=== PATIENT | male | born 1940 | race Caucasian/White ===

== ENCOUNTER 2019-02-25 10:15 | Inpatient (IN) | payer OTHER, SELFPAY ==
[2019-02-25] VITALS (14 sets, daily range): BP systolic 162–196; BP diastolic 83–98; PULSE 42–88; RESP 12–18; TEMP 36.2–37.2; O2SAT 92–100; BMI 33.0
--- NOTE | ~2019-02-25 | XR_ITS ---
EXAMINATION: XR retrograde pyelo w/stent RT DATE: 02/25/2019 15:41 INDICATION: Right-sided stone. TECHNIQUE: Fluoroscopic images from a right internal ureteral stent stent placement are submitted for review. 36 seconds of fluoroscopy time. 4 fluoroscopic images. FINDINGS: There is a right double-J internal ureteral stent projecting in expected position, with proximal [place] loop at the level of the renal pelvis and distal loop in the pelvis within the bladder lumen. There are radiation therapy implant seeds in the prostate bed. IMPRESSION: 1. Right internal ureteral stent placement. Please refer to real-time procedural findings for detai ls. Reviewed, dictated and finalized at location B. POLISHER HAND IMPRESSION: 1. Right internal ureteral stent placement. Please refer to real-time procedu ral findings for details.
--- NOTE | ~2019-02-25 | CT_ITS ---
EXAMINATION: CT abdomen pelvis wo con DATE: 02/25/2019 10:48 INDICATION: Right flank pain. Hematuria. TECHNIQUE: Computed tomography (CT) of the abdomen and pelvis was performed without intravenous contr ast. Automated exposure control and iterative reconstruction technique were employed. The dose-length product was 531.81 mGy-cm. COMPARISON: 12/31/2008 FINDINGS: Mild bibasilar dependent atelectasis. Calcified nodules in the right middle lobe along with calcified right hilar lymph nodes and a few scattered splenic and hepatic calcifications, all consistent with old granulomatous disease. Heart size is normal. No pericardial or pleural effusion. Liver and spleen are otherwise unremarkable. Gallbladder, pancreas and bilateral adrenal glands are normal. 1.[address] at the upper pole of the left kidney. No urolithiasis evident at the left or right kidneys or uret ers. There is mild right hydronephrosis with material of slightly higher than typical soft tissue den sity material peripherally within the right renal pelvis and proximal most right ureter with differen tial including hemorrhage/clot and/or potentially urothelial carcinoma. The partially decompressed bl adder is unremarkable. Multiple brachytherapy seeds at the prostate. The bowels including the appendi x are normal. No free intraperitoneal gas or fluid. No pathologically enlarged abdominal or pelvic ly mphadenopathy. Severe spondylosis at the lumbosacral junction. Mild to moderate spondylosis in the mo re cephalad thoracolumbar spine. There are bridging osteophytes at multiple levels in the spine, cons istent with diffuse idiopathic skeletal hyperostosis (DISH). IMPRESSION: 1. Mild right hydronephrosis with no urolithiasis. Eccentric filling defects at the right renal pelvi s and proximal right ureter with slightly higher than typical soft tissue density with differential i ncluding hemorrhage/clot and/or potentially urothelial carcinoma. Recommend urologic consultation con sideration of ureteroscopy. Reviewed, dictated and finalized at location A. MAKER APPRENTICE IMPRESSION: 1. Mild right hydronephrosis with no urolithiasis. Eccentric filling defects at the right renal pelvis and proximal right ureter with slightly higher than typ ical soft tissue density with differential including hemorrhage/clot and/or pot entially urothelial carcinoma. Recommend urologic consultation consideration of ureteroscopy.
--- NOTE | ~2019-02-25 | XR_ITS ---
XR abdomen/kub 1V 02/27/2019 11:36 Indication: Gross hematuria Procedure: KUB Comparison: CT dated 02/27/2019 Findings: There is residual contrast in the right kidney and renal collecting system, likely from pre vious retrograde pyelogram performed 02/25/2019. There is a right internal ureteral stent in expected position. There are radiation therapy implant seeds in the prostate bed. Bowel gas pattern is nonobs tructive. Impression: 1: Residual contrast in the right kidney and renal collecting system, consistent with obstruction. Ri ght internal ureteral stent in expected position. Reviewed, dictated and finalized at location B. ETICS DEMONSTRATOR Impression: 1: Residual contrast in the right kidney and renal collecting system, consisten t with obstruction. Right internal ureteral stent in expected position.
--- NOTE | ~2019-02-25 | CT_ITS ---
EXAMINATION: CT abdomen pelvis wo/w con DATE: 02/27/2019 10:00 INDICATION: Gross hematuria TECHNIQUE: Computed tomography (CT) of the abdomen and pelvis was performed without intravenous contr ast. The dose-length product was 2573.73 mGy-cm. Automated exposure control and iterative reconstruct ion technique were employed. COMPARISON: CT dated 02/25/2019 FINDINGS: Stable 6 millimeter right middle lobe nodule, pleural-based. Dependent bibasilar atelectasi s. Heart size is normal. Mild pleural thickening bilaterally. Calcified granulomas in the spleen and liver. Gallbladder contains stones. There is a right internal ureteral stent in expected position. Mild distal right periureteral edema. There is high density mate rial in the right renal pelvis and proximal ureter, likely hemorrhage or less likely residual contras t. There is a Spivey catheter in the bladder which is thickened. There are prostate radiation therapy implants. No lymphadenopathy. Moderate lower thoracic and lumbar spondylosis. The pancreas and adrenal glands are unremarkable. There is a left renal cyst. Bowel pattern is nonobs tructive. No acute osseous abnormality. IMPRESSION: 1. High density material in the right renal pelvis and proximal ureter, likely hemorrhage or less lik jovana residual contrast. Right internal ureteral stent in expected position. 2: Bladder wall thickening, possibly due to bladder outlet obstruction and/or cystitis. 3: 6 mm right middle lobe nodule stable. Follow-up low dose CT chest in 6 months recommended. Reviewed, dictated and finalized at location B. ING MACHINE OPERATOR IMPRESSION: 1. High density material in the right renal pelvis and proximal ureter, likely hemorrhage or less likely residual contrast. Right internal ureteral stent in e xpected position. 2: Bladder wall thickening, possibly due to bladder outlet obstruction and/or c ystitis. 3: 6 mm right middle lobe nodule stable. Follow-up low dose CT chest in 6 month s recommended.
--- NOTE | 2019-02-25 10:41 | PC.NURSE ---
Unable to get blood from pt due to Xray taking him at this time.
--- NOTE | 2019-02-25 10:57 | PC.NURSE ---
Pt attempting urination at this time.
--- NOTE | 2019-02-25 11:06 | PC.NURSE ---
Pt unable to produce specimen, refusing cath.
[2019-02-25 11:09] LABS: Basophils Percent Auto 0.3 % (0.2-1.2); Eosinophils Absolute Auto 0.1 K/mm3 (0-0.3); Eosinophils Percent Auto 1.9 % (0-4.4); Hematocrit 45.6 % (42.0-52.0); Hemoglobin 15.3 g/dL (14.0-18.0); Immature Granulocyte Absolute 0.03 K/mm3 (0.00-0.031); Immature Granulocyte Percent A 0.5 % (0-0.5); Lymphocytes Absolute Auto 1.27 K/mm3 (0.9-3.2); Mean Corpuscular HGB Conc 33.6 g/dl (32-36); Mean Corpuscular Volume 92.3 fl (80-100); Mean Platelet Volume 8.9 fl (7.4-10.4); Monocytes Absolute Auto 0.6 K/mm3 (0.1-0.6); Monocytes Percent Auto 10.1 % (2.6-8.5); Neutrophils Absolute Auto 4.3 K/mm3 (1.3-6.7); Neutrophils Percent Auto 67.2 % (45.5-73.1); Platelet Count Result 214 k/mm3 (150-375); Red Blood Count 4.94 M/mm3 (4.6-6.20); Red Cell Distribution Width 12.5 % (11.5-14.5); White Blood Count 6.4 K/mm3 (4.5-10.0)
[2019-02-25 11:21] LABS: Alanine Aminotransferase 35 U/L (4-50); Albumin Level 4.6 g/dL (3.5-5.1); Alkaline Phosphatase 86 U/L (38-126); Aspartate Amino Transferase 32 U/L (17-59); Bilirubin,Total 0.7 mg/dL (0.2-1.3); Blood Urea Nitrogen 17 mg/dL (9-20); Calcium 9.6 mg/dL (8.4-10.2); Carbon Dioxide 23 mmol/L (22-30); Chloride 104 mmol/L (98-107); Estimated CRCL calculation 74 ml/min; Estimated Glomerular Filt Rate > 60; Glucose 141 mg/dL (75-110); Potassium 3.8 mmol/L (3.4-5.0); Prothrombin Time 12.5 Seconds (11.1-14.7); Sodium 141 mmol/L (137-145)
[2019-02-25 11:22] LABS: Partial Thromboplastin Time 28.1 SECONDS (22.3-36.8)
[2019-02-25 12:30] LABS: Add Urine Microscopic? YES; Appearance Urine Clear (Clear); Bacteria Urine Trace /hpf; Bilirubin Urine Negative (Negative); Blood Urine 2+ (Negative); Color Urine Yellow (Yellow); Glucose Urine UA Negative (Negative); Ketones Urine Negative (Negative); Leukocyte Esterase Ur Trace LEU/UL (Negative); Mucus Urine Rare /lpf; Nitrate Urine Negative (Negative); Protein Urine Negative (Negative); RBC Urine >75 /hpf (0-2); Urobilinogen Urine Negative mg/dL (<2.0)
--- NOTE | 2019-02-25 12:35 | PC.NURSE ---
PT FOUND VOMMITTING IN BED, PT REPORTS NAUSEA CAME ON SUDDENLY, MADONNA VANEGAS INFORMED, VERBAL ORDER FOR STAT DOSE OF IVP ZOFRAN 4MG.
[2019-02-25] MEDS: MORPHINE SULFATE 2 MG/ML INJ IV PUSH (12:42)
[2019-02-25] MEDS: ONDANSETRON INJ 4 MG/2 ML VIAL (13:08)
--- NOTE | 2019-02-25 13:16 | ED.GENADULT ---
HPI - General Adult General Chief complaint: Back Pain/Injury Stated complaint: hematuria, flank pain Time Seen by Provider: 02/25/19 10:21 Source: patient Mode of arrival: ambulatory Limitations: no limitations History of Present Illness HPI narrative: Patient presents with CC of right flank pain that radiates into his right groin that has been progressively worsening since this morning. He states he has noticed red urine since Sunday but thought it was due to red dye in vitalife supplement he started for his joint pains/arthritis. He denies fever, N/V/D. He denies history of kidney stones. He denies seeing clots in his urine and denies pain with urination or inability to urinate. Patient PMH of hypercholesterolemia, hypertension, and arthritis. He reports he takes 81 mg aspirin but denies other blood thinner usage. Related Data Home Medications Medication Instructions Recorded Confirmed amlodipine 5 mg PO DAILY 02/25/19 aspirin 81 mg PO DAILY 02/25/19 atorvastatin 10 mg PO DAILY 02/25/19 irbesartan-hydrochlorothiazide 1 tablet PO DAILY 02/25/19 metoprolol succinate 200 mg PO BID 02/25/19 sgdnrxnt-cah-QQ-lycopen-lutein tablet 02/25/19 [Vitacel (with Lutein)] omega 1-rwt-qjg-fish oil [Fish Oil] cap PO 02/25/19 Allergies Allergy/AdvReac Type Severity Reaction Status Date / Time No Known Allergies Allergy Unverified 10/16/16 07:49 Review of Systems Review of Systems: Narrative: CONSTITUTIONAL: Denies fever, chills, or sweats. EYES: Denies visual changes, redness, or discharge. ENT: Denies rhinorrhea, congestion, sore throat, or otalgia. CARDIOVASCULAR: Denies chest pain, palpitations, or edema. RESPIRATORY: Denies cough or dyspnea. GASTROINTESTINAL: Denies abdominal pain, nausea, vomiting, or diarrhea. GENITOURINARY: Reports right flank pain and hematuria. Denies dysuria SKIN: Denies rash or itching. MUSCULOSKELETAL: Denies back pain, joint pain, or myalgia. NEUROLOGIC: Denies headache, numbness, dizziness, or weakness. PSYCHIATRIC: Denies anxiety or depression. [facility] Past Medical History Medical History (Updated 02/25/19 @ 14:51 by Artur Alexander PA-C) HTN (hypertension) (Acute) Hypercholesterolemia (Acute) Prostate cancer (Acute) Social History Social History Gender identity (if verbalized by the patient): Male Exam Narrative: Exam Narrative: GENERAL: Well-appearing, well-nourished, and in no acute distress. HEAD: Normocephalic, atraumatic. EYES: PERRLA and EOMI. ENT: Nares clear, no rhinorrhea or epistaxis. Mucous membranes moist. Oropharynx without tonsillar hypertrophy exudate or other lesions. Bilateral TMs pearly camacho nonbulging CHEST: Clear to auscultation. No respiratory distress. No wheezes rales or rhonchi HEART: Regular rate and rhythm. No murmur heard. ABDOMEN: Soft, Mildly tender with deep palpation right groin. normal active bowel sounds. EXTREMITIES: Normal range of motion. No edema. SKIN: Warm, dry, no rash. NEURO: No focal deficits. Alert and oriented x3. PSYCH: Normal mood and affect. Course Course Emergency Course: 1307: Consult with Dr. Geiger urology pertaining to patient's presentation, history, work-up. He states that he will typically discharge patient to home with outpatient follow-up but due to his pain level he will have the nurse practitioner come to the emergency department to further evaluate patient and make recommendations towards his treatment plan. Dr. Geiger in ER to evaluate patient. He reports due to patient's pain status he will be taken him to the ER immediately for stent placement. Discussed with him the patient did not take his blood pressure medications at home today and the intention to give patient hydralazine prior to him being taken to the OR. Informed him that patient has been taken to the OR prior to being given the hydralazine. He verbalized understanding. Vital Signs Vital signs
[2019-02-25] MEDS: LACTATED RINGERS 1,000 ML 30 ML IV CONT (14:30)
--- NOTE | 2019-02-25 14:32 | PM.IMHP ---
H&P: HPI History of Present Illness Chief complaint: hematuria, flank pain Narrative: Robbin Mahmood is a 78 year old male with a known history of prostate cancer treated with brachytherapy. I had seen Robbin approximately a year ago regarding that issue. He now presents to the emergency room with complaints of gross hematuria and right flank pain. This started over the past few days progressed to the point where he cannot tolerate the discomfort. CT scan in the emergency room revealed no evidence of stones. He did have some mild right hydro with irregularity of the renal pelvis ureter. It was unclear whether this was clot versus underlying malignancy. He has required quite a bit of narcotics in the emergency room and this will need to be admitted for pain control and further management. Given his pain we decided to proceed with the stent placement at the minimum possibly ureteroscopy. He is aware that if there is clot there we may not be able to adequately evaluate him. Where least trying to decompress his kidney control his pain. He may require further management once his pain issue resolved Review of Systems Review of Systems: All systems reviewed & are unremarkable except as noted in HPI and below PMFSH Social History Social History Gender identity (if verbalized by the patient): Male Meds Home Medications and Allergies Home Medications Medication Instructions Recorded Confirmed Type amlodipine 5 mg PO DAILY 02/25/19 History aspirin 81 mg PO DAILY 02/25/19 History atorvastatin 10 mg PO DAILY 02/25/19 History irbesartan-hydrochlorothiazide 1 tablet PO DAILY 02/25/19 History metoprolol succinate 200 mg PO BID 02/25/19 History baqgvxxm-mxu-ZZ-lycopen-lutein tablet 02/25/19 History [Vitacel (with Lutein)] omega 3-gsh-lfi-fish oil [Fish Oil] cap PO 02/25/19 History Allergies Allergy/AdvReac Type Severity Reaction Status Date / Time No Known Allergies Allergy Unverified 10/16/16 07:49 Vital Signs Vital Signs - 24 hr 02/25/19 10:32 02/25/19 12:34 02/25/19 13:40 Temperature 36.6 C 36.5 C Pulse Rate 42 L 56 L 78 Respiratory Rate 18 18 18 Blood Pressure 196/91 H 185/87 H 189/89 H Pulse Oximetry 99 100 100 02/25/19 14:16 Temperature Pulse Rate 88 Respiratory Rate 18 Blood Pressure 188/97 H Pulse Oximetry 99 Exam Narrative: Exam Narrative: Patient is obviously in discomfort from his right flank pain. His vital signs are stable although his blood pressure is slightly elevated most likely from his pain. HENMT: General nose exam: nares normal Eyes: General: appearance normal, both eyes and all related structures EOM: EOM intact bilaterally Resp: Auscultation: clear to auscultation bilaterally (For ER) Cardio: Rate: regular rate Rhythm: regular rhythm (For ER) GI: Inspection: non-distended Palpation (GI): Yes soft and No tender Skin: General skin exam: normal color Neuro: Speech: normal speech Extrem: General: normal to inspection Psych: Affect: normal affect H&P: Results Labs Labs: Short CBC 02/25/19 Range/Units 11:05 WBC 6.4 (4.5-10.0) K/mm3 Hgb 15.3 (14.0-18.0) g/dL Hct 45.6 (42.0-52.0) % Plt Count 214 (150-375) k/mm3 BMP 02/25/19 11:04 Sodium 141 Potassium 3.8 Chloride 104 Carbon Dioxide 23 BUN 17 Creatinine 0.90 Glucose 141 H Calcium 9.6 Liver Function 02/25/19 Range/Units 11:04 Total Bilirubin 0.7 (0.2-1.3) mg/dL AST 32 (17-59) U/L ALT 35 (4-50) U/L Alkaline Phosphatase 86 (38-126) U/L Albumin 4.6 (3.5-5.1) g/dL Urine 02/25/19 Range/Units 11:43 Urine Color Yellow (Yellow) Urine Appearance Clear (Clear) Urine pH 9.0 (5.0-9.0) Ur Specific [place] 1.010 (1.001-1.035) Urine Protein Negative (Negative) mg/dL Urine Glucose (UA) Negative (Negative) mg/dL Assessment and Plan Assessment and plan
--- NOTE | 2019-02-25 14:37 | WPDANESEPPF ---
Anes - Initial Pre Proc Eval Procedure: Operation Date: 02/25/19 16:30 Proposed Procedures p CYSTOSCOPY,RIGHT RETROGRADE PYELOGRAM,STENT PLACEMENT,POSSIBLE URETEROSCOPY - Shaggy Geiger MD Date/Time: 02/25/19 14:37 Surgeon: Shaggy Geiger MD Pre Op Diagnosis: hematuria, flank pain Patient Data Age: 78 Gender: M Height: 1.83 m Weight: 104.3 kg Last Vital Signs Temp 36.5 C 02/25/19 13:40 Pulse 88 02/25/19 14:16 Resp 18 02/25/19 14:16 BP 188/97 H 02/25/19 14:16 Pulse Ox 99 02/25/19 14:16 Allergies Allergy/AdvReac Type Severity Reaction Status Date / Time No Known Allergies Allergy Unverified 10/16/16 07:49 Home Medications Medication Instructions Recorded Confirmed Type amlodipine 5 mg PO DAILY 02/25/19 History aspirin 81 mg PO DAILY 02/25/19 History atorvastatin 10 mg PO DAILY 02/25/19 History irbesartan-hydrochlorothiazide 1 tablet PO DAILY 02/25/19 History metoprolol succinate 200 mg PO BID 02/25/19 History ndzuipbp-wna-GO-lycopen-lutein tablet 02/25/19 History [Vitacel (with Lutein)] omega 9-icm-bid-fish oil [Fish Oil] cap PO 02/25/19 History Laboratory Tests 02/25/19 02/25/19 02/25/19 11:04 11:04 11:05 WBC 6.4 K/mm3 K/mm3 (4.5-10.0) RBC 4.94 M/mm3 M/mm3 (4.6-6.20) Hgb 15.3 g/dL g/dL (14.0-18.0) Hct 45.6 % % (42.0-52.0) MCV 92.3 fl fl (80-100) MCH 31.0 pg pg (26-34) MCHC 33.6 g/dl g/dl (32-36) RDW 12.5 % % (11.5-14.5) Plt Count 214 k/mm3 k/mm3 (150-375) MPV 8.9 fl fl (7.4-10.4) Immature Gran % (Auto) 0.5 % % (0-0.5) Neut % (Auto) 67.2 % % (45.5-73.1) Lymph % (Auto) 20.0 % % (18.3-44.2) [place]isher % (Auto) 10.1 % H % (2.6-8.5) Eos % (Auto) 1.9 % % (0-4.4) Baso % (Auto) 0.3 % % (0.2-1.2) Lymph # (Auto) 1.27 K/mm3 K/mm3 (0.9-3.2) Swisher # (Auto) 0.6 K/mm3 K/mm3 (0.1-0.6) Eos # (Auto) 0.1 K/mm3 K/mm3 (0-0.3) Baso # (Auto) 0.0 K/mm3 K/mm3 (0.0-0.1) Abs Immat Gran (auto) 0.03 K/mm3 K/mm3 (0.00-0.031) Absolute Neuts (auto) 4.3 K/mm3 K/mm3 (1.3-6.7) Absolute Nucleated RBC 0.0 K/mm3 K/mm3 (0.0-0.012) Nucleated RBC % 0.0 % % (0.0-0.2) PT 12.5 Seconds Seconds (11.1-14.7) INR 1.0 APTT 28.1 SECONDS SECONDS (22.3-36.8) Sodium 141 mmol/L mmol/L (137-145) Potassium 3.8 mmol/L mmol/L (3.4-5.0) Chloride 104 mmol/L mmol/L (98-107) Carbon Dioxide 23 mmol/L mmol/L (22-30) BUN 17 mg/dL mg/dL (9-20) Creatinine 0.90 mg/dL mg/dL (0.7-1.3) Estim Creat Clear Calc 74 ml/min ml/min Estimated GFR > 60 (59 - ) Glucose 141 mg/dL H mg/dL (75-110) Calcium 9.6 mg/dL mg/dL (8.4-10.2) Total Bilirubin 0.7 mg/dL mg/dL (0.2-1.3) AST 32 U/L U/L (17-59) ALT 35 U/L U/L (4-50) Alkaline Phosphatase 86 U/L U/L (38-126) Total Protein 8.0 g/dL g/dL (6.3-8.2) Albumin 4.6 g/dL g/dL (3.5-5.1) Urine Color Urine Appearance Urine pH Ur Specific [place] Urine Protein Urine Glucose (UA) Urine Ketones Ur Blood (Man) Urine Nitrate Urine Bilirubin Urine Urobilinogen Leukocyte Esterase Rfl Urine RBC Urine Bacteria Urine Mucus 02/25/19 11:43 WBC RBC Hgb Hct MCV MCH MCHC RDW Plt Count MPV Immature Gran % (Auto) Neut % (Auto) Lymph % (Auto) Swisher % (Auto) Eos % (Auto) Baso % (Auto) Lymph # (Auto) Swisher # (Auto)
--- NOTE | 2019-02-25 14:42 | ECG_ITS ---
Measurements Intervals [place] Rate: 70 P: 74 MD: 258 QRS: -21 QRSD: 115 T: -18 QT: 404 QTc: 436 Interpretive Statements SINUS RHYTHM WITH FIRST DEGREE AV BLOCK INTRAVENTRICULAR CONDUCTION DELAY VOLTAGE CRITERIA FOR LVH BORDERLINE T WAVE ABNORMALITY- INFERIOR LEADS ABNORMAL ECG Electronically Signed On 02-25-2019 16:37:39 SIZE STAMPER by Jaspal Gustafson D.O.
[2019-02-25] MEDS: LIDOCAINE HCL 2% GEL UROJET 10 ML PKG MUCOUS MEM (15:15)
--- NOTE | 2019-02-25 15:38 | PM.PROC ---
Procedure Note - Detailed Date of procedure: 02/25/19 Pre-op diagnosis: hematuria, flank pain Gross hematuria with right renal colic and hydronephrosis Post-op diagnosis: same Procedure performed: Cystoscopy, right retrograde pyelogram, attempted right ureteroscopy, right ureteral stent placement 6 Austrian contour Description of procedure: The patient was taken the operative suite and correctly identified. Once general anesthesia was obtained he was placed in a dorsal lithotomy position prepped and draped in the usual sterile fashion. Twenty-two Austrian scope was inserted into the bladder. There were no urethral strictures prostate was slightly enlarged. Upon entering the bladder there was no bladder tumors. He did however have a large clot extruding from the right ureteral orifice which appeared prominent. We grasped the fragment of this. We then placed a voxappson wire alongside the clot up in the renal pelvis. We placed a rigid ureteroscope into the orifice after dilating with an 8/10 dilator. We were unable to adequately visualize anything due to the clot. The clot was extending all the way up the ureter. At this point time I simply placed a [place] over the guidewire and shot a retrograde to confirm placement of the stent. There was no apparent large filling defects at this time in the renal pelvis. We did go ahead obtain some some urine from the right renal pelvis and sent for cytology. This point time is 6 Austrian contour stent was placed with the proximal end coiled in the renal pelvis and the distal in the bladder. 2% viscous lidocaine was inserted into the urethra. Due to the hematuria we did place a [address] and connected it to CBI. 15 cc were placed the Spivey balloon. Patient was taken recovery stable condition will be admitted for CBI as well as pain control. Once he stabilizes he will require a contrast study. Will needed give adequate time for the clots to resolve and most likely will need a repeat ureteroscopy. Anesthesia: GLMA Surgeon: Shaggy Geiger MD Drains: Yes Packing: No Pathology: other (right renal pelvic urine for cytology) Complications: No immediate complications Condition: stable Disposition: PACU Findings: clot extending into proximal ureter. Unable to visualize adequately
--- NOTE | 2019-02-25 16:00 | SUR.PHASEII ---
1550 PATIENT WAKING UP; ORAL AIRWAY REMOVED. PT SPEAKING COHERENTLY. DENIES PAIN. ONLY REPORTS PRESSURE TO RIGHT LOWER ABDOMINAL. SBI IN PROGRESS. DRAINING RED URINE TO PINA BAG.
--- NOTE | 2019-02-25 17:57 | ADMGEN ---
This patient, Robbin Mahmood, was admitted to 3 Medical Room 349-01. Patient/family oriented to hospital policies and general routines including ID bracelet, bed and alarms, visiting hours, pain management, procedures, bathroom and other care routines, personal items, smoking policy, room service/diet, and visiting hours. Valuables list has been completed. Information on how to activate the Rapid Response Team has been discussed. Patient/Family are encouraged to report perceived risks to care and to ask questions if they do not understand what they are told or what they should do. 1740 Received from OR via stretcher. Family at bedside.
[2019-02-25] MEDS: DOCUSATE SODIUM 100 MG CAPSULE PO (18:59)
[2019-02-25] MEDS: DEXTROSE 5%/LACTATED RINGERS 1,000 ML 125 ML IV CONT (19:51)
[2019-02-26 00:05] VITALS: BP 149/82; PULSE 75; RESP 14; TEMP 36.4; O2SAT 98
[2019-02-26 04:21] VITALS: BP 151/71; PULSE 68; RESP 14; TEMP 36.4; O2SAT 94
[2019-02-26 06:03] LABS: Hemoglobin 14.2 g/dL (14.0-18.0)
[2019-02-26 06:26] LABS: Blood Urea Nitrogen 12 mg/dL (9-20); Carbon Dioxide 26 mmol/L (22-30); Chloride 105 mmol/L (98-107); Estimated CRCL calculation 85 ml/min; Estimated Glomerular Filt Rate > 60; Glucose 143 mg/dL (75-110); Potassium 4.3 mmol/L (3.4-5.0); Sodium 140 mmol/L (137-145)
[2019-02-26 08:40] VITALS: PULSE 68
[2019-02-26] MEDS: METOPROLOL SUCCINATE EXT REL 100 MG TABCR 200 MG PO (08:40)
[2019-02-26] MEDS: ATORVASTATIN 10 MG TABLET PO (08:41)
[2019-02-26] MEDS: IRBESARTAN 150 MG TABLET PO (08:41)
[2019-02-26] MEDS: AMLODIPINE BESYLATE 5 MG TABLET PO (08:41)
[2019-02-26] MEDS: DOCUSATE SODIUM 100 MG CAPSULE PO ×2 (08:41→16:58)
[2019-02-26] MEDS: hydroCHLOROthiazide 12.5 MG CAPSULE PO (08:41)
--- NOTE | 2019-02-26 10:50 | WPDUROPN2 ---
Progress Note: A&P Assessment and Plan (1) Hematuria: Qualifiers: Hematuria type: unspecified type Qualified Code(s): R31.9 - Hematuria, unspecified Code(s): R31.9 - Hematuria, unspecified Status: Acute Assessment and Plan: Will order BMP and H&H and Dr. Geiger to review labs and repeat CT scan to plan for further treatment. (2) Renal colic on right side: Code(s): N23 - Unspecified renal colic Status: Acute Assessment and Plan: creatinine is stable, stent in place (3) Ureter obstruction: Qualifiers: Laterality: right Qualified Code(s): N13.5 - Crossing vessel and stricture of ureter without hydronephrosis Code(s): N13.5 - Crossing vessel and stricture of ureter without hydronephrosis Status: Acute Subjective Subjective Date/Time Seen: 02/26/19 10:50 POD #2 Cystoscopy, right retrograde pyelogram, attempted right ureteroscopy, right ureteral stent placement Continued gross hematuria despite ongoing CBI Review of Systems Cardiovascular: Cardiovascular: Denies chest pain Respiratory: Respiratory: Reports no additional respiratory complaints Gastrointestinal: Gastrointestinal: Reports abdominal pain (right flank) Genitourinary: Genitourinary: Reports hematuria (neves in place) Exam Resp: Effort & Inspection: normal respiratory effort Cardio: Rate: regular rate GI: Palpation (GI): Yes tender in the RUQ : General: Yes CVA tenderness on the right Urinary Catheter: Urinary Catheter: patent and draining and urine red Objective Data Vital Signs Vital Signs: Vital Signs - 24 hr 02/25/19 12:34 02/25/19 13:40 02/25/19 14:16 Temperature 97.7 F Pulse Rate 56 L 78 88 Respiratory Rate 18 18 18 Blood Pressure 185/87 H 189/89 H 188/97 H Pulse Oximetry 100 100 99 02/25/19 15:42 02/25/19 16:00 02/25/19 16:15 Temperature 98.3 F Pulse Rate 75 70 66 Respiratory Rate 15 16 16 Blood Pressure 179/91 H 192/98 H 196/90 H Pulse Oximetry 99 92 L 93 L 02/25/19 16:30 02/25/19 17:00 02/25/19 17:15 Temperature 98 F Pulse Rate 71 71 72 Respiratory Rate 12 16 16 Blood Pressure 189/96 H 183/91 H 177/96 H Pulse Oximetry 96 94 L 95 02/25/19 17:40 02/25/19 17:55 02/25/19 18:25 Temperature 98.9 F 98.9 F 97.1 F L Pulse Rate 76 73 78 Respiratory Rate 18 18 16 Blood Pressure 184/87 H 162/85 H 178/88 H Pulse Oximetry 97 96 99 02/25/19 19:47 02/26/19 00:05 02/26/19 04:21 Temperature 97.7 F 97.6 F 97.6 F Pulse Rate 81 75 68 Respiratory Rate 16 14 14 Blood Pressure 165/83 H 149/82 H 151/71 H Pulse Oximetry 95 98 94 L 02/26/19 08:40 Temperature Pulse Rate 68 Respiratory Rate Blood Pressure Pulse Oximetry Intake/Output Intake/Output: Intake & Output 02/23/19 02/24/19 02/25/19 02/26/19 23:59 23:59 23:59 23:59 Intake Total 9895 1200 Output Total 3708 0985 Balance 6143 -2335 Meds/Results Medications: Active Medications Generic Name Dose Route Start Last Admin Trade Name Freq PRN Reason Stop Dose Admin Hydrocodone Bitart/Acetaminophen 1 tab 02/25/19 16:23 Kemp 5-325 Mg PO Q4H PRN Pain Rated 1-6 Amlodipine Besylate 5 mg 02/26/19 09:00 02/26/19 08:41 Norvasc PO 5 mg DAILY NATALYA Administration Atorvastatin Calcium 10 mg 02/26/19 09:00 02/26/19 08:41 Lipitor PO 10 mg DAILY NATALYA Administration Cephalexin HCl 500 mg 02/26/19 13:00 Keflex Capsule PO QID NATALYA Docusate Sodium 100 mg 02/25/19 17:00 02/26/19 08:41 Colace Cap PO 100 mg BID NATALYA Administration Hydrochlorothiazide 12.5 mg 02/26/19 09:00 02/26/19 08:41 Hydrochlorothiazide PO 12.5 mg QAM NATALYA Administration Hyoscyamine 0.125 mg 02/25/19 16:23 Levsin Tablet SUBLINGUAL Q6H PRN Bladder Spasm Irbesartan 150 mg 02/26/19 09:00 02/26/19 08:41 Avapro PO 03/28/19 09:01 150 mg DAILY NATALYA Administration Metoprolol Succinate 200 mg 02/26/19 09:00 1
--- NOTE | 2019-02-26 13:57 | WPDUROPN2 ---
Progress Note: A&P Assessment and Plan (1) Ureter obstruction: Qualifiers: Laterality: right Qualified Code(s): N13.5 - Crossing vessel and stricture of ureter without hydronephrosis Code(s): N13.5 - Crossing vessel and stricture of ureter without hydronephrosis Status: Acute Assessment and Plan: Stent in place, will remove as an outpatient. No further intervention at this time. (2) Hematuria: Qualifiers: Hematuria type: unspecified type Qualified Code(s): R31.9 - Hematuria, unspecified Code(s): R31.9 - Hematuria, unspecified Status: Acute Assessment and Plan: CBI was turned back on d/t bloody urine. Will probably not totally clear d/t ureteral clot present, but pink urine would be ideal. Wean CBI to off when urine is pink, will keep overnight and re-assess tomorrow. Subjective Subjective Date/Time Seen: 02/26/19 13:57 POD #1 Cystoscopy, right retrograde pyelogram, attempted right ureteroscopy, right ureteral stent placement Review of Systems Cardiovascular: Cardiovascular: Denies chest pain Respiratory: Respiratory: Reports no additional respiratory complaints Gastrointestinal: Gastrointestinal: Denies abdominal pain Genitourinary: Genitourinary: Reports hematuria and Denies dysuria Exam Resp: Effort & Inspection: normal respiratory effort Cardio: Rate: regular rate Urinary Catheter: Urinary Catheter: patent and draining and urine red Objective Data Vital Signs Vital Signs: Vital Signs - 24 hr 02/25/19 14:16 02/25/19 15:42 02/25/19 16:00 Temperature 98.3 F Pulse Rate 88 75 70 Respiratory Rate 18 15 16 Blood Pressure 188/97 H 179/91 H 192/98 H Pulse Oximetry 99 99 92 L 02/25/19 16:15 02/25/19 16:30 02/25/19 17:00 Temperature 98 F Pulse Rate 66 71 71 Respiratory Rate 16 12 16 Blood Pressure 196/90 H 189/96 H 183/91 H Pulse Oximetry 93 L 96 94 L 02/25/19 17:15 02/25/19 17:40 02/25/19 17:55 Temperature 98.9 F 98.9 F Pulse Rate 72 76 73 Respiratory Rate 16 18 18 Blood Pressure 177/96 H 184/87 H 162/85 H Pulse Oximetry 95 97 96 02/25/19 18:25 02/25/19 19:47 02/26/19 00:05 Temperature 97.1 F L 97.7 F 97.6 F Pulse Rate 78 81 75 Respiratory Rate 16 16 14 Blood Pressure 178/88 H 165/83 H 149/82 H Pulse Oximetry 99 95 98 02/26/19 04:21 02/26/19 08:40 Temperature 97.6 F Pulse Rate 68 68 Respiratory Rate 14 Blood Pressure 151/71 H Pulse Oximetry 94 L Intake/Output Intake/Output: Intake & Output 02/23/19 02/24/19 02/25/19 02/26/19 23:59 23:59 23:59 23:59 Intake Total 9895 4200 Output Total 3702 4725 Balance 6196 -024 Meds/Results Medications: Active Medications Generic Name Dose Route Start Last Admin Trade Name Freq PRN Reason Stop Dose Admin Hydrocodone Bitart/Acetaminophen 1 tab 02/25/19 16:23 [place] 5-325 Mg PO Q4H PRN Pain Rated 1-6 Amlodipine Besylate 5 mg 02/26/19 09:00 02/26/19 08:41 Norvasc PO 5 mg DAILY NATALYA Administration Atorvastatin Calcium 10 mg 02/26/19 09:00 02/26/19 08:41 Lipitor PO 10 mg DAILY NATALYA Administration Cephalexin HCl 500 mg 02/26/19 13:00 Keflex Capsule PO QID NATALYA Docusate Sodium 100 mg 02/25/19 17:00 02/26/19 08:41 Colace Cap PO 100 mg BID NATALYA Administration Hydrochlorothiazide 12.5 mg 02/26/19 09:00 02/26/19 08:41 Hydrochlorothiazide PO 12.5 mg QAM NATALYA Administration Hyoscyamine 0.125 mg 02/25/19 16:23 Levsin Tablet SUBLINGUAL Q6H PRN Bladder Spasm Irbesartan 150 mg 02/26/19 09:00 02/26/19 08:41 Avapro PO 03/28/19 09:01 150 mg DAILY NATALYA Administration Metoprolol Succinate 200 mg 02/26/19 09:00 02/26/19 08:40 Toprol Xl PO 200 mg QAM NATALYA Administration Morphine Sulfate 2 mg 02/25/19 16:23 Morphine Sulfate Inj IV PUSH Q2H PRN Pain Rated 7-10 Naloxone HCl 0.1 mg 02/25/19 16:23 Narcan IV PUSH Q2M PRN Opi
[2019-02-26] MEDS: CEPHALEXIN 500 MG CAPSULE PO ×3 (14:15→20:01)
[2019-02-27 04:48] VITALS: BP 149/80; PULSE 62; RESP 16; TEMP 36.7; O2SAT 97
[2019-02-27 08:57] VITALS: PULSE 62
[2019-02-27] MEDS: hydroCHLOROthiazide 12.5 MG CAPSULE PO (08:57)
[2019-02-27] MEDS: METOPROLOL SUCCINATE EXT REL 100 MG TABCR 200 MG PO (08:57)
[2019-02-27] MEDS: ATORVASTATIN 10 MG TABLET PO (08:58)
[2019-02-27] MEDS: IRBESARTAN 150 MG TABLET PO (08:58)
[2019-02-27] MEDS: AMLODIPINE BESYLATE 5 MG TABLET PO (08:58)
[2019-02-27] MEDS: DOCUSATE SODIUM 100 MG CAPSULE PO ×2 (08:58→17:25)
[2019-02-27] MEDS: CEPHALEXIN 500 MG CAPSULE PO ×4 (08:58→21:47)
[2019-02-27 09:25] LABS: Hematocrit 41.9 % (42.0-52.0); Hemoglobin 14.1 g/dL (14.0-18.0)
[2019-02-27 09:36] LABS: Blood Urea Nitrogen 18 mg/dL (9-20); Calcium 8.9 mg/dL (8.4-10.2); Carbon Dioxide 27 mmol/L (22-30); Chloride 104 mmol/L (98-107); Estimated CRCL calculation 63 ml/min; Estimated Glomerular Filt Rate > 60; Glucose 106 mg/dL (75-110); Potassium 3.8 mmol/L (3.4-5.0); Sodium 138 mmol/L (137-145)
[2019-02-27] MEDS: MAGNESIUM HYDROXIDE SUSP 30 ML UDC PO (10:41)
[2019-02-27] MEDS: MORPHINE SULFATE 2 MG/ML INJ IV PUSH (12:55)
[2019-02-27 14:00] VITALS: BP 182/77; PULSE 55; RESP 18; TEMP 36.4; O2SAT 93
[2019-02-27] MEDS: TAMSULOSIN HCL 0.4 MG CAPSULE PO (19:44)
[2019-02-27 22:32] VITALS: BP 131/68; PULSE 56; RESP 16; TEMP 36.6; O2SAT 94
[2019-02-28 05:59] VITALS: BP 138/70; PULSE 93; RESP 16; TEMP 36.4; O2SAT 93
[2019-02-28] MEDS: DOCUSATE SODIUM 100 MG CAPSULE PO ×2 (09:37→17:14)
[2019-02-28] MEDS: AMLODIPINE BESYLATE 5 MG TABLET PO (09:37)
[2019-02-28] MEDS: hydroCHLOROthiazide 12.5 MG CAPSULE PO (09:37)
[2019-02-28] MEDS: CEPHALEXIN 500 MG CAPSULE PO ×3 (09:37→17:14)
[2019-02-28 09:38] VITALS: PULSE 58; RESP 16; O2SAT 93
[2019-02-28] MEDS: ATORVASTATIN 10 MG TABLET PO (09:38)
[2019-02-28] MEDS: METOPROLOL SUCCINATE EXT REL 100 MG TABCR 200 MG PO (09:38)
[2019-02-28] MEDS: IRBESARTAN 150 MG TABLET PO (09:38)
[2019-02-28 13:00] VITALS: BP 135/65; PULSE 57; RESP 16; TEMP 36.8; O2SAT 95
--- NOTE | 2019-02-28 16:08 | WPDUROPN2 ---
Progress Note: A&P Assessment and Plan (1) Ureter obstruction: Qualifiers: Laterality: right Qualified Code(s): N13.5 - Crossing vessel and stricture of ureter without hydronephrosis Code(s): N13.5 - Crossing vessel and stricture of ureter without hydronephrosis Status: Acute (2) Hematuria: Qualifiers: Hematuria type: unspecified type Qualified Code(s): R31.9 - Hematuria, unspecified Code(s): R31.9 - Hematuria, unspecified Status: Acute Assessment and Plan: ok to discharge home with neves, will remove in office on Sunday morning. Subjective Subjective Date/Time Seen: 02/28/19 16:08 POD #2 Cystoscopy, right retrograde pyelogram, attempted right ureteroscopy, right ureteral stent placement Review of Systems Cardiovascular: Cardiovascular: Denies chest pain Respiratory: Respiratory: Reports no additional respiratory complaints Gastrointestinal: Gastrointestinal: Denies abdominal pain, Denies nausea and Denies vomiting Genitourinary: Genitourinary: Reports hematuria and Reports other (retention) Exam Resp: Effort & Inspection: normal respiratory effort Cardio: Rate: regular rate GI: GI Palp: No tender Urinary Catheter: Urinary Catheter: patent and draining and urine red Objective Data Vital Signs Vital Signs: Vital Signs - 24 hr 02/27/19 22:32 02/28/19 05:59 02/28/19 09:38 Temperature 97.8 F 97.6 F Pulse Rate 56 L 93 58 L Respiratory Rate 16 16 16 Blood Pressure 131/68 138/70 Pulse Oximetry 94 93 93 02/28/19 13:00 Temperature 98.2 F Pulse Rate 57 L Respiratory Rate 16 Blood Pressure 135/65 Pulse Oximetry 95 Intake/Output Intake/Output: Intake & Output 02/25/19 02/26/19 02/27/19 02/28/19 23:59 23:59 23:59 23:59 Intake Total 9895 8160 2470 440 Output Total 3700 7025 20973 2200 Balance 6195 4653 -1401 -6895 Meds/Results Medications: Active Medications Generic Name Dose Route Start Last Admin Trade Name Freq PRN Reason Stop Dose Admin Hydrocodone Bitart/Acetaminophen 1 tab 02/25/19 16:23 02/27/19 14:39 Allen 5-325 Mg PO 1 tab Q4H PRN Administration Pain Rated 1-6 Amlodipine Besylate 5 mg 02/26/19 09:00 02/28/19 09:37 Norvasc PO 5 mg DAILY NATALYA Administration Atorvastatin Calcium 10 mg 02/26/19 09:00 02/28/19 09:38 Lipitor PO 10 mg DAILY NATALYA Administration Cephalexin HCl 500 mg 02/26/19 13:00 02/28/19 12:56 Keflex Capsule PO 500 mg QID [facility] Administration Docusate Sodium 100 mg 02/25/19 17:00 02/28/19 09:37 Colace Cap PO 100 mg BID NATALYA Administration Hydrochlorothiazide 12.5 mg 02/26/19 09:00 02/28/19 09:37 Hydrochlorothiazide PO 12.5 mg QAM [facility] Administration Hyoscyamine 0.125 mg 02/25/19 16:23 Levsin Tablet SUBLINGUAL Q6H PRN Bladder Spasm Irbesartan 150 mg 02/26/19 09:00 02/28/19 09:38 Avapro PO 03/28/19 09:01 150 mg DAILY [facility] Administration Metoprolol Succinate 200 mg 02/26/19 09:00 02/28/19 09:38 Toprol Xl PO 200 mg QAM [facility] Administration Morphine Sulfate 2 mg 02/25/19 16:23 02/27/19 12:55 Morphine Sulfate Inj IV PUSH 2 mg Q2H PRN Administration Pain Rated 7-10 Naloxone HCl 0.1 mg 02/25/19 16:23 Narcan IV PUSH Q2M PRN Opiate Reversal Ondansetron HCl 4 mg 02/25/19 16:23 Zofran Inj IV PUSH Q12H PRN Nausea And Vomiting Tamsulosin HCl 0.4 mg 02/27/19 18:00 02/27/19 19:44 Flomax PO 0.4 mg EVENING NATALYA Administration Radiology Results: ITS Impressions Retrograde Pyelogram 02/25/19 15:57 IMPRESSION: 1. Right internal ureteral stent placement. Please refer to real-time procedural findings for details. Abdomen/Pelvis CT 02/27/19 10:15 IMPRESSION: 1. High density material in the right renal pelvis and proximal ureter, likely hemorrhage or less likely residual contrast. Right internal ureteral stent in expected positio
[2019-02-28] MEDS: TAMSULOSIN HCL 0.4 MG CAPSULE PO (17:14)
--- NOTE | 2019-03-01 01:20 | DS_ITS ---
DATE OF DISCHARGE: 02/28/2019 PREOPERATIVE DIAGNOSES: Hematuria and flank pain. POSTOPERATIVE DIAGNOSES: Hematuria, flank pain in addition to gross hematuria with right renal colic and hydronephrosis. HOSPITAL COURSE: The patient underwent a cystoscopy, right retrograde pyelogram, attempted right ureteroscopy, right ureteral stent placement on February [address] Shaggy Geiger. The patient tolerated the procedure well. Has struggled with gross hematuria since, which is an expected finding due to ureteral clot present. The patient is okay to go home today with Spivey catheter, which will be removed on Sunday in our office at 10 a.m. He will follow up then. He will resume all home medications except for aspirin on hold until Sunday next week, March 04. He will in addition go home on Flomax, Keflex, hyoscyamine. ACTIVITY: As tolerated. DIET: As tolerated. D I MT: [facility]
== END 2019-02-28 17:25 | disposition home or self-care (01) | DRG 661 ==
LOC: ANHED 13:57 → ANHSURGERY 14:15 → ANH3MED 16:47
PROVIDERS: Nurse Practitioner Adult Health; Physician Assistant; Admitting Provider Urology; Emergency Provider Emergency Medicine; PCP Family Medicine Adolescent Medicine; Visit Provider Urology
PROC: 0T768DZ Dilation of Right Ureter with Intraluminal Device, Via Natural or Artificial Opening Endoscopic (ICD-10-PCS; CPT 52352; principal; 2019-02-25 16:30)
DX: R31.0 Gross hematuria (principal); N23 Unspecified renal colic; N13.30 Unspecified hydronephrosis; E78.00 Pure hypercholesterolemia, unspecified; I10 Essential (primary) hypertension; M19.90 Unspecified osteoarthritis, unspecified site; E66.9 Obesity, unspecified; N13.5 Crossing vessel and stricture of ureter without hydronephrosis; Z85.46 Personal history of malignant neoplasm of prostate
CPT/HCPCS: 36415; 51701; 74018; 74176; 74178; 74420; 80048; 80053; 81001; 85014; 85018; 85025; 85610; 85730; 88104; 88108; 88305; 93005; 96361; 96365; 96374; 96375; 96376; 99285; A9270; C1758; C1769; C2617; G0378; J0690; J1100; J2270; J2405; J2704; J3010; J7120; J7121; Q9967

== ENCOUNTER 2019-04-23 08:10 | Outpatient (CLI) | payer OTHER, SELFPAY ==
--- NOTE | ~2019-04-23 | CT_ITS ---
EXAMINATION: CT abdomen pelvis wo/w con DATE: 04/23/2019 09:00 INDICATION: Gross hematuria, history of diffuse blood clot of the right ureter TECHNIQUE: Computed tomography (CT) of the abdomen and pelvis was performed without intravenous contr ast. CT of the abdomen and pelvis was then performed with a total of 130 mL Omnipaque 350 intravenous contrast using a double-bolus technique for simultaneous opacification of the renal parenchyma and r enal collecting system. The dose-length product (DLP) was 2297.80 mGy-cm. Automated exposure control and iterative reconstruction technique were employed. COMPARISON: 02/27/2019, 02/25/2019 FINDINGS: There is a chronic 4 mm subpleural nodule of the right middle lobe, consistent with old gra nulomatous disease. Mild dependent atelectasis is noted. The heart size is normal. There is minimal b ilateral gynecomastia. Punctate calcifications in otherwise normal appearing liver and spleen likely represent healed granulomatous disease. The pancreas, gallbladder, and adrenal glands are normal. A r ight internal ureteral stent is in expected position. Hematoma within the right renal pelvis has reso lved. There is a persistent filling defect involving a posterior calyx of the right kidney upper pole with some extension into the renal pelvis. The persistent filling defect demonstrates enhancement af ter contrast administration. No urinary tract calculi are identified. There is a 1.7 cm cyst of the l eft kidney upper pole. No pathologically enlarged abdominal or pelvic lymph nodes are identified. Rad iation seeds are noted in the prostate. There is no free intraperitoneal gas or evidence of bowel obs truction. The bladder is unremarkable. There is severe lumbar spondylosis at L5-S1. IMPRESSION: 1. Interval resolution of hematoma in the right renal pelvis with persistent filling defect involving a posterior calyx of the right kidney upper pole extending into the upper aspect of the right renal pelvis. The remaining persistent filling defect demonstrates enhancement after contrast administratio n concerning for malignancy. Reviewed, dictated and finalized at location A. NNED EQUIPMENT OPERATOR IMPRESSION: 1. Interval resolution of hematoma in the right renal pelvis with persistent fi lling defect involving a posterior calyx of the right kidney upper pole extendi ng into the upper aspect of the right renal pelvis. The remaining persistent fi lling defect demonstrates enhancement after contrast administration concerning for malignancy.
[2019-04-23 08:39] LABS: Blood Urea Nitrogen 12 mg/dL (8-26); Estimated Glomerular Filt Rate > 60
== END 2019-04-23 08:11 | disposition home or self-care (01) ==
LOC: ANHIMG 08:11
PROVIDERS: PCP Family Medicine Adolescent Medicine; Visit Provider Urology
DX: R31.0 Gross hematuria (principal); R93.421 Abnormal radiologic findings on diagnostic imaging of right kidney
CPT/HCPCS: 74178; Q9967

== ENCOUNTER 2019-04-30 08:43 | Outpatient (CLI) | payer OTHER, SELFPAY ==
[2019-04-30 09:07] LABS: Add Urine Microscopic? YES; Appearance Urine Clear (Clear); Bilirubin Urine Negative (Negative); Blood Urine 2+ (Negative); Color Urine Straw (Yellow); Glucose Urine UA Negative (Negative); Ketones Urine Negative (Negative); Leukocyte Esterase Ur Negative LEU/UL (Negative); Nitrate Urine Negative (Negative); Protein Urine Negative (Negative); Specific Grav Ur 1.011 (1.001-1.035); Urobilinogen Urine Negative mg/dL (<2.0); WBC Urine 0-3 /hpf
[2019-04-30 09:18] LABS: Blood Urea Nitrogen 13 mg/dL (9-20); Calcium 9.7 mg/dL (8.4-10.2); Carbon Dioxide 28 mmol/L (22-30); Chloride 102 mmol/L (98-107); Estimated Glomerular Filt Rate > 60; Glucose 99 mg/dL (75-110); Potassium 4.5 mmol/L (3.4-5.0); Sodium 141 mmol/L (137-145)
== END 2019-04-30 08:44 | disposition home or self-care (01) ==
LOC: ANHSURGERY 08:47
PROVIDERS: Anesthesiology; PCP Family Medicine Adolescent Medicine; Visit Provider Urology
DX: R31.9 Hematuria, unspecified (principal); Z79.899 Other long term (current) drug therapy
CPT/HCPCS: 36415; 80048; 81001

== ENCOUNTER 2019-05-02 01:00 | Day surgery (SDC) | payer OTHER, SELFPAY ==
[2019-04-29 09:37] VITALS: BMI 31.2
[2019-05-02] VITALS (7 sets, daily range): BP systolic 154–202; BP diastolic 76–94; PULSE 52–65; RESP 13–20; TEMP 36.3; O2SAT 98–100
--- NOTE | ~2019-05-02 | XR_ITS ---
EXAMINATION: XR retrograde pyelogram RT DATE: 05/02/2019 15:07 INDICATION: Hematuria with possible right renal mass TECHNIQUE: 9 fluoroscopic spot images of the abdomen and pelvis were obtained during procedure perfor med by Dr. Geiger. Radiologist was not present for the imaging or procedure. The amount of fluorosc opy time used during this procedure was 0.3 minutes. COMPARISON: CT dated 04/23/2019 FINDINGS: Advancement of a catheter through the right ureter to the ureteropelvic junction. Retrograd e contrast injections demonstrates mild right hydronephrosis. The mass seen at the upper pole calyx o f the kidney on prior CT is unable to be definitively identified on the pyelographic images. Subseque nt images demonstrate placement of a right internal ureteral stent with loops formed in the bladder a nd pelvis. Brachytherapy seeds at the prostate. IMPRESSION: 1. Right internal ureteral stent placement in expected position. See procedure note for further detai l. Reviewed, dictated and finalized at location A. RIAL ATTENDANT IMPRESSION: 1. Right internal ureteral stent placement in expected position. See procedure note for further detail.
--- NOTE | 2019-05-02 10:24 | WPDHPUPDATE1 ---
History and Physical Update Update Date/Time: 05/02/19 10:24 History and Physical has been reviewed, including an updated exam of the patient. There are NO changes in the patient's condition. Risks, benefits, and alternatives have been discussed and questions answered. Patient agrees to proceed with procedure.
--- NOTE | 2019-05-02 11:00 | WPDANESEPPF ---
Anes - Initial Pre Proc Eval Procedure: Operation Date: 05/02/19 12:30 Proposed Procedures p Cystoscopy, Right Ureteroscopy, Right Retrograde Pyelogram, Possible Biopsy - Shaggy Geiger MD Date/Time: 05/02/19 11:00 Surgeon: Shaggy Geiger MD Pre Op Diagnosis: Hematuria Patient Data Age: 78 Gender: M Height: 6 ft Weight: 104.5 kg Allergies Allergy/AdvReac Type Severity Reaction Status Date / Time No Known Allergies Allergy Unverified 04/29/19 09:35 Home Medications Medication Instructions Recorded Confirmed Type Vitacel (with Lutein) 1 tablet PO DAILY 02/25/19 04/29/19 History atorvastatin 10 mg PO DAILY 02/25/19 04/29/19 History irbesartan-hydrochlorothiazide 1 tablet PO DAILY 02/25/19 04/29/19 History metoprolol succinate 200 mg PO DAILY 02/25/19 04/29/19 History omega 8-dck-zow-fish oil [Fish Oil] 1 cap PO DAILY 02/25/19 04/29/19 History Patient hx anesthesia problems: none Family hx anesthesia problems: none PMFSH Past Medical History Medical History HTN (hypertension) Hypercholesterolemia Prostate cancer Family History Family History Mother Lung cancer Father Gunshot wound Sibling Back ache Social History Social History Smoking packs per day: 3 Smoking cigarettes per day: 60.0 Years smoked: 10 Smoking pack-years: 30.00 Smoking status: Former smoker Second hand tobacco smoke exposure: No Alcohol intake: current Drinks per week: 3 Substance use: never Substance use type: does not use Gender identity (if verbalized by the patient): Male Spiritual care concerns: No Agree to blood products: Yes Anes - Eval Final PreProcedure Day of Procedure 05/02/19 11:00 Patient weight: obese Heart: regular rate and rhythm Lungs: clear to auscultation Airway: Mallampati scale class II Neurological: alert and oriented Last oral intake: >/= 8 hours ASA classification: III Emergent: no Anesthetic plan: proceed Anesthesia type and monitoring: general LMA and standard monitoring Informed Consent: The patient's anesthetic plan and its attendant risks and benefits were discussed with the patient/family/POA. Questions were solicited and answers provided to the satisfaction of the patient/family/POA.
[2019-05-02] MEDS: LACTATED RINGERS 1,000 ML 30 ML IV CONT ×2 (11:40→15:21)
[2019-05-02] MEDS: ceFAZolin 2 GM/D5W 50 ML 2 GM/50 ML BAG IVPB (13:55)
--- NOTE | 2019-05-02 16:59 | OP_ITS ---
DATE OF PROCEDURE: 05/02/2019 PREOPERATIVE DIAGNOSIS: Hematuria with possible right renal mass. POSTOPERATIVE DIAGNOSIS: Hematuria with possible right renal mass. PROCEDURE PERFORMED: Cystoscopy, right retrograde pyelogram, right ureteroscopy with biopsy of right upper pole lesion, right ureteral stent exchange with a 6-Togolese contour stent. ANESTHESIA: General with local. COMPLICATIONS: None. FINDINGS: Soft, friable lesion, right upper pole. DESCRIPTION OF PROCEDURE: Patient was taken to the operative suite. Once anesthesia was obtained, he was placed in the dorsal lithotomy position, prepped and draped in usual sterile fashion. A 22-Togolese scope inserted in the bladder. There were no tumors noted in the bladder. The right ureteral stent was grasped and brought out to the meatus. A guidewire was inserted through the stent. A digital ureteroscope was then inserted all the way up into the kidney. There were no papillary tumors in the lower or middle pole calices. In the upper pole calyx, he has a lesion which appeared well encapsulated. It was yellow and brown in nature. We placed an Escape basket initially to see if it was hard and using that Escape basket, we were able to take some tissue off and it was apparent that it was very friable tissue. This tissue was sent for analysis. 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 The biopsy itself did cause some oozing and as such, we did a pyelogram and replaced the stent with a 6-Togolese contour stent. 2% viscous lidocaine was inserted in the urethra. He was taken to the recovery room in stable condition. He will follow up in a week's time for discussion of path. Kirit I MT: Mark
== END 2019-05-02 16:05 | disposition home or self-care (01) ==
PROVIDERS: PCP Family Medicine Adolescent Medicine; Visit Provider Urology
PROC: (CPT 52352; principal; 2019-05-02 12:30)
DX: C64.1 Malignant neoplasm of right kidney, except renal pelvis (principal); I10 Essential (primary) hypertension; E78.00 Pure hypercholesterolemia, unspecified; Z85.46 Personal history of malignant neoplasm of prostate; Z87.891 Personal history of nicotine dependence; E66.9 Obesity, unspecified; Z68.31 Body mass index [BMI] 31.0-31.9, adult
CPT/HCPCS: 52354; 52332; 74420; 88305; A9270; C1758; C1769; C2617; J0131; J0360; J0690; J1100; J2405; J2704; J3010; J7120; Q9966

== ENCOUNTER 2019-06-06 09:39 | Outpatient (CLI) | payer OTHER, SELFPAY ==
[2019-06-06 10:35] LABS: Basophils Absolute Auto 0.1 K/mm3 (0.0-0.1); Basophils Percent Auto 0.9 % (0.2-1.2); Eosinophils Absolute Auto 0.2 K/mm3 (0-0.3); Eosinophils Percent Auto 3.1 % (0-4.4); Hematocrit 48.4 % (42.0-52.0); Hemoglobin 16.3 g/dL (14.0-18.0); Immature Granulocyte Absolute 0.02 K/mm3 (0.00-0.031); Immature Granulocyte Percent A 0.3 % (0-0.5); Lymphocytes Percent Auto 29.6 % (18.3-44.2); Mean Corpuscular HGB Conc 33.7 g/dl (32-36); Mean Corpuscular Hemoglobin 30.1 pg (26-34); Mean Corpuscular Volume 89.5 fl (80-100); Mean Platelet Volume 8.8 fl (7.4-10.4); Monocytes Absolute Auto 0.7 K/mm3 (0.1-0.6); Monocytes Percent Auto 12.3 % (2.6-8.5); Neutrophils Absolute Auto 3.1 K/mm3 (1.3-6.7); Neutrophils Percent Auto 53.8 % (45.5-73.1); Platelet Count Result 220 k/mm3 (150-375); Red Blood Count 5.41 M/mm3 (4.6-6.20); Red Cell Distribution Width 12.1 % (11.5-14.5); White Blood Count 5.8 K/mm3 (4.5-10.0)
[2019-06-06 10:45] LABS: INR 0.9; Prothrombin Time 12.1 Seconds (11.1-14.7)
[2019-06-06 10:46] LABS: Partial Thromboplastin Time 27.2 SECONDS (22.3-36.8)
[2019-06-06 10:48] LABS: Alanine Aminotransferase 36 U/L (4-50); Albumin Level 4.7 g/dL (3.5-5.1); Alkaline Phosphatase 85 U/L (38-126); Aspartate Amino Transferase 34 U/L (17-59); Bilirubin,Total 0.9 mg/dL (0.2-1.3); Blood Urea Nitrogen 17 mg/dL (9-20); Calcium 9.4 mg/dL (8.4-10.2); Carbon Dioxide 29 mmol/L (22-30); Chloride 103 mmol/L (98-107); Estimated Glomerular Filt Rate > 60; Glucose 108 mg/dL (75-110); Potassium 4.3 mmol/L (3.4-5.0); Sodium 141 mmol/L (137-145)
== END 2019-06-06 09:40 | disposition home or self-care (01) ==
PROVIDERS: PCP Family Medicine Adolescent Medicine; Visit Provider Urology
DX: N28.89 Other specified disorders of kidney and ureter (principal); Z79.899 Other long term (current) drug therapy; I10 Essential (primary) hypertension
CPT/HCPCS: 36415; 80053; 85025; 85610; 85730; 86850; 86900; 86901; 87086

== ENCOUNTER 2019-06-17 12:34 | Inpatient (IN) | payer OTHER, SELFPAY ==
[2019-06-06 10:16] VITALS: BP 150/87; PULSE 62; RESP 18; TEMP 36.6; O2SAT 96; BMI 31.6
[2019-06-17] VITALS (13 sets, daily range): BP systolic 135–162; BP diastolic 67–80; PULSE 53–76; RESP 12–66; TEMP 36.4–36.7; O2SAT 92–99
--- NOTE | 2019-06-17 06:44 | WPDANESEPPF ---
Anes - Initial Pre Proc Eval Procedure: Operation Date: 06/17/19 07:30 Proposed Procedures p Hand-Assisted Laparoscopic Right Nephrectomy - Shaggy Geiger MD Date/Time: 06/17/19 06:44 Surgeon: Shaggy Geiger MD Pre Op Diagnosis: Right Renal Mass Patient Data Age: 78 Gender: M Height: 6 ft Weight: 105.7 kg Last Vital Signs Temp 36.6 C 06/06/19 10:16 Pulse 62 06/06/19 10:16 Resp 18 06/06/19 10:16 BP 150/87 H 06/06/19 10:16 Pulse Ox 96 06/06/19 10:16 Allergies Allergy/AdvReac Type Severity Reaction Status Date / Time No Known Allergies Allergy Unverified 06/06/19 10:15 Home Medications Medication Instructions Recorded Confirmed Type atorvastatin 10 mg PO DAILY 02/25/19 06/06/19 History irbesartan-hydrochlorothiazide 1 tablet PO DAILY 02/25/19 06/06/19 History metoprolol succinate 200 mg PO DAILY 02/25/19 06/06/19 History omega 7-fxz-zbr-fish oil [Fish Oil] 1 cap PO DAILY 02/25/19 06/06/19 History amlodipine 5 mg PO DAILY 06/06/19 06/06/19 History Patient hx anesthesia problems: none Family hx anesthesia problems: none PMFSH Past Medical History Medical History HTN (hypertension) Hypercholesterolemia Prostate cancer Family History Family History Mother Lung cancer Father Gunshot wound Sibling Back ache Social History Social History Smoking packs per day: 3 Smoking cigarettes per day: 60.0 Years smoked: 10 Smoking pack-years: 30.00 Smoking status: Former smoker Second hand tobacco smoke exposure: No Alcohol intake: current Drinks per week: 3 Substance use: never Substance use type: does not use Gender identity (if verbalized by the patient): Male Spiritual care concerns: No Agree to blood products: Yes Anes - Eval Final PreProcedure Day of Procedure 06/17/19 06:44 Patient weight: obese Heart: regular rate and rhythm Lungs: decreased breath sounds Airway: Mallampati scale class II Neurological: alert and oriented Last oral intake: >/= 8 hours ASA classification: IV Emergent: no Anesthetic plan: proceed Anesthesia type and monitoring: general ETT and standard monitoring Informed Consent: The patient's anesthetic plan and its attendant risks and benefits were discussed with the patient/family/POA. Questions were solicited and answers provided to the satisfaction of the patient/family/POA.
[2019-06-17] MEDS: LACTATED RINGERS 1,000 ML 30 ML IV CONT ×2 (07:10→11:13)
--- NOTE | 2019-06-17 07:29 | PM.IMHP ---
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 HE was in the hospital initially with gross hematuria and obstruction of his collecting system. Subsequent ureteroscopy with biopsy confirmed the carcinoma. He has been havintg intermittent gross hematuria and presents for KAVITHA right nephrectomy today. Risks and complications were discussed in the office. Review of Systems Review of Systems: All systems reviewed & are unremarkable except as noted in HPI and below PMFSH Past Medical History Medical History HTN (hypertension) Hypercholesterolemia Prostate cancer Family History Family History Mother Lung cancer Father Gunshot wound Sibling Back ache Social History Social History Smoking packs per day: 3 Smoking cigarettes per day: 60.0 Years smoked: 10 Smoking pack-years: 30.00 Smoking status: Former smoker Second hand tobacco smoke exposure: No Alcohol intake: current Drinks per week: 3 Substance use: never Substance use type: does not use Gender identity (if verbalized by the patient): Male Spiritual care concerns: No Agree to blood products: Yes Meds Home Medications and Allergies Home Medications Medication Instructions Recorded Confirmed Type atorvastatin 10 mg PO DAILY 02/25/19 06/06/19 History irbesartan-hydrochlorothiazide 1 tablet PO DAILY 02/25/19 06/06/19 History metoprolol succinate 200 mg PO DAILY 02/25/19 06/06/19 History omega 1-bnx-kct-fish oil [Fish Oil] 1 cap PO DAILY 02/25/19 06/06/19 History amlodipine 5 mg PO DAILY 06/06/19 06/06/19 History Allergies Allergy/AdvReac Type Severity Reaction Status Date / Time No Known Allergies Allergy Unverified 06/17/19 06:57 Exam Const: General: comfortable Eyes: General: appearance normal, both eyes and all related structures Resp: Effort & Inspection: normal respiratory effort Cardio: Rate: regular rate Rhythm: regular rhythm : Male General Exam: Yes normal external exam Urinary Catheter: Urinary Catheter: urine clear Skin: General skin exam: normal color Neuro: Speech: normal speech Assessment and Plan Assessment and plan (1) Renal mass, right: Code(s): N28.89 - Other specified disorders of kidney and ureter Status: Acute Assessment and Plan: KAVITHA right nephrectomy.
[2019-06-17] MEDS: ceFAZolin 2 GM/D5W 50 ML 2 GM/50 ML BAG IVPB (07:32)
--- NOTE | 2019-06-17 07:49 | SUR.PREOP ---
0645-PT STATES NO CHANGE SINCE INTERVIEW. DENIES ELEVATED TEMP OR ANY RESPIRATORY SYMPTOMS. INSTRUCTED ON HOSPITAL VISITING REGULATIONS.
--- NOTE | 2019-06-17 10:56 | PM.PROC ---
Procedure Note - Detailed Date of procedure: 06/17/19 Pre-op diagnosis: Right Renal Mass Post-op diagnosis: same Procedure performed: Hand assisted laparoscopic right radical nephrectomy Description of procedure: Patient was taken the operative suite and correctly identified. Once anesthesia was obtained Neves catheter was placed. He was placed in lateral decubitus position with the right side up. All pressure points were padded. Axillary roll had been placed. An incision was made for the hand port just superior and lateral to the umbilical site. This is carried down to the rectus fascia which was incised and opened. The peritoneal cavity was opened. Hand port was placed in the abdomen was insufflated to 15 mmHg pressure. He had some mild adhesions were taken down. The white line of Toldt was then reflected. The duodenum was Kocherized. He had quite a bit of inflammatory reaction around the hilar area from the prior stent placement and bleed that he had. We were able to isolate the ureter as well as the gonadal vein. Gonadal vein was spared. The kidney was lifted off the psoas muscle. He had an extreme amount of fat around the kidney. Again the hilar area was very fibrotic in nature. We were able to isolate the renal vein. The artery was located posterior to it. We were able to dissected out completely given the reaction and had around it. At this point time in endovascular staple was placed across the renal vein and transected. A 2nd endovascular stapler was then placed around the artery along with the inflammatory reaction around it. This was transected also. At and superior pole of the kidney was then isolated. Posterior attachments were also freed. The ureter was transected with the stent which had been placed prior retrieved. The stent was left in the specimen. There was good hemostasis at termination procedure. We placed some FloSeal as well as toseal along the hilar area and adrenal bed area. Surgicel was then placed over these areas. All lap count needle count sponge counts were correct. The midline incision needed to be extended to retrieve the kidney and that was sent for analysis. Midline incision was closed using double looped PDS. See 3 O chromic was used to bury the suture. Monocryl was used to close the skin. We anesthetized the skin with 1% Marcaine. He is taken recovery room in stable condition. Anesthesia: GETA Surgeon: Shaggy Geiger MD Estimated blood loss (mL): 100 Drains: Yes (neves) Packing: No Pathology: yes Complications: No immediate complications Condition: stable Disposition: PACU
[2019-06-17 13:02] LABS: Hematocrit 42.5 % (42.0-52.0); Hemoglobin 14.8 g/dL (14.0-18.0)
[2019-06-17 13:20] LABS: Blood Urea Nitrogen 15 mg/dL (9-20); Calcium 8.8 mg/dL (8.4-10.2); Carbon Dioxide 23 mmol/L (22-30); Chloride 104 mmol/L (98-107); Estimated CRCL calculation 56 ml/min; Estimated Glomerular Filt Rate 59; Glucose 131 mg/dL (75-110); Potassium 3.9 mmol/L (3.4-5.0); Sodium 136 mmol/L (137-145)
[2019-06-17] MEDS: IRBESARTAN 150 MG TABLET PO (14:16)
[2019-06-17] MEDS: CEPHALEXIN 500 MG CAPSULE PO ×3 (14:16→23:35)
[2019-06-17] MEDS: ATORVASTATIN 10 MG TABLET PO (14:17)
[2019-06-17] MEDS: DEXTROSE 5%/LACTATED RINGERS 1,000 ML 125 ML IV CONT ×2 (14:17→19:41)
[2019-06-17] MEDS: hydroCHLOROthiazide 12.5 MG CAPSULE PO (14:17)
[2019-06-17] MEDS: HYDROMORPHONE HCL 1 MG/ML INJ 0.5 MG IV PUSH ×3 (14:18→23:35)
[2019-06-17] MEDS: DOCUSATE SODIUM 100 MG CAPSULE PO (16:23)
[2019-06-18] VITALS (8 sets, daily range): BP systolic 143–153; BP diastolic 58–70; PULSE 63–73; RESP 16–20; TEMP 36.7–37.4; O2SAT 91–95
[2019-06-18] MEDS: ALBUTEROL SULFATE NEB 2.5 MG/0.5 ML INH INHALATION ×2 (00:28→09:03)
[2019-06-18] MEDS: DEXTROSE 5%/LACTATED RINGERS 1,000 ML 125 ML IV CONT ×3 (04:11→20:54)
[2019-06-18] MEDS: CEPHALEXIN 500 MG CAPSULE PO ×3 (05:51→18:01)
[2019-06-18 06:22] LABS: Basophils Percent Auto 0.3 % (0.2-1.2); Eosinophils Percent Auto 0.3 % (0-4.4); Hematocrit 40.1 % (42.0-52.0); Hemoglobin 13.8 g/dL (14.0-18.0); Immature Granulocyte Absolute 0.04 K/mm3 (0.00-0.031); Immature Granulocyte Percent A 0.4 % (0-0.5); Lymphocytes Percent Auto 8.5 % (18.3-44.2); Mean Corpuscular HGB Conc 34.4 g/dl (32-36); Mean Corpuscular Hemoglobin 30.1 pg (26-34); Mean Corpuscular Volume 87.4 fl (80-100); Mean Platelet Volume 8.4 fl (7.4-10.4); Monocytes Absolute Auto 1.6 K/mm3 (0.1-0.6); Monocytes Percent Auto 15.4 % (2.6-8.5); Neutrophils Absolute Auto 7.9 K/mm3 (1.3-6.7); Neutrophils Percent Auto 75.1 % (45.5-73.1); Platelet Count Result 173 k/mm3 (150-375); Red Blood Count 4.59 M/mm3 (4.6-6.20); Red Cell Distribution Width 11.9 % (11.5-14.5); White Blood Count 10.5 K/mm3 (4.5-10.0)
[2019-06-18 06:38] LABS: Blood Urea Nitrogen 13 mg/dL (9-20); Calcium 8.9 mg/dL (8.4-10.2); Carbon Dioxide 27 mmol/L (22-30); Chloride 101 mmol/L (98-107); Estimated CRCL calculation 56 ml/min; Estimated Glomerular Filt Rate 59; Glucose 160 mg/dL (75-110); Potassium 3.6 mmol/L (3.4-5.0); Sodium 133 mmol/L (137-145)
--- NOTE | 2019-06-18 07:42 | P.PNAN_ITS ---
Anes - Prog Note Post-Op Date/Time: 06/18/19 07:42 Cardiovascular status: normal Respiratory status: normal Airway patency: baseline Mental status: baseline Post-Op hydration status: normal Vital Signs: Last Vital Signs Temp 37.2 C 06/18/19 06:00 Pulse 63 06/18/19 06:00 Resp 18 06/18/19 06:00 BP 153/70 H 06/18/19 06:00 Pulse Ox 94 06/18/19 06:00 I/O: Intake & Output 06/17/19 06/17/19 06/18/19 15:59 23:59 07:59 Intake Total 400 1470 1820 Output Total 182 654 5013 Balance 100 770 -55 Laboratory Tests 06/18/19 06:11 06/18/19 06:11 06/17/19 06/17/19 06/18/19 12:54 12:54 06:11 WBC 10.5 H RBC 4.59 L Hgb 14.8 13.8 L Hct 42.5 40.1 L MCV 87.4 MCH 30.1 MCHC 34.4 RDW 11.9 Plt Count 173 MPV 8.4 Immature Gran % (Auto) 0.4 Neut % (Auto) 75.1 H Lymph % (Auto) 8.5 L Lipscomb % (Auto) 15.4 H Eos % (Auto) 0.3 Baso % (Auto) 0.3 Lymph # (Auto) 0.90 Lipscomb # (Auto) 1.6 H Eos # (Auto) 0.0 Baso # (Auto) 0.0 Abs Immat Gran (auto) 0.04 H Absolute Neuts (auto) 7.9 H Absolute Nucleated RBC 0.0 Nucleated RBC % 0.0 Sodium 136 L Potassium 3.9 Chloride 104 Carbon Dioxide 23 BUN 15 Creatinine 1.20 Estim Creat Clear Calc 56 Estimated GFR 59 Glucose 131 H Calcium 8.8 06/18/19 06:11 WBC RBC Hgb Hct MCV MCH MCHC RDW Plt Count MPV Immature Gran % (Auto) Neut % (Auto) Lymph % (Auto) Lipscomb % (Auto) Eos % (Auto) Baso % (Auto) Lymph # (Auto) Lipscomb # (Auto) Eos # (Auto) Baso # (Auto) Abs Immat Gran (auto) Absolute Neuts (auto) Absolute Nucleated RBC Nucleated RBC % Sodium 133 L Potassium 3.6 Chloride 101 Carbon Dioxide 27 BUN 13 Creatinine 1.20 Estim Creat Clear Calc 56 Estimated GFR 59 Glucose 160 H Calcium 8.9 Post-procedural complaints: none Patient Feedback: Patient satisfied with anesthetic care.
[2019-06-18] MEDS: ONDANSETRON INJ 4 MG/2 ML VIAL IV PUSH (08:25)
[2019-06-18] MEDS: AMLODIPINE BESYLATE 5 MG TABLET PO (08:30)
[2019-06-18] MEDS: DOCUSATE SODIUM 100 MG CAPSULE PO ×2 (08:31→18:01)
[2019-06-18] MEDS: ATORVASTATIN 10 MG TABLET PO (08:31)
[2019-06-18] MEDS: IRBESARTAN 150 MG TABLET PO (08:32)
[2019-06-18] MEDS: METOPROLOL SUCCINATE EXT REL 100 MG TABCR 200 MG PO (08:32)
[2019-06-18] MEDS: hydroCHLOROthiazide 12.5 MG CAPSULE PO (08:32)
--- NOTE | 2019-06-18 13:21 | WPDUROPN2 ---
Progress Note: A&P Assessment and Plan (1) Renal mass, right: Code(s): N28.89 - Other specified disorders of kidney and ureter Status: Acute Assessment and Plan: s/p KAVITHA right nephrectomy - POD #1 - encouraged ambulation - PT evaluation - IS 10x per day - void trial Subjective Subjective Date/Time Seen: 06/18/19 13:21 Review of Systems Constitutional: Constitutional: Reports no additional constitutional complaints Eyes: Eyes: Reports no additional eye complaints Cardiovascular: Cardiovascular: Reports no additional cardiovascular complaints Gastrointestinal: Gastrointestinal: Reports no additional gastrointestinal complaints Exam Const: General: no acute distress Eyes: General: appearance normal, both eyes and all related structures GI: Other: soft, incisions clean Urinary Catheter: Urinary Catheter: patent and draining and urine clear Psych: Mental Status: mental status grossly normal Objective Data Vital Signs Vital Signs: Vital Signs - 24 hr 06/17/19 13:30 06/17/19 14:30 06/17/19 22:00 Temperature 36.7 C 36.4 C L Pulse Rate 61 60 76 Respiratory Rate 18 18 18 Blood Pressure 140/70 135/68 151/73 H Pulse Oximetry 97 99 95 06/18/19 00:40 06/18/19 02:00 06/18/19 06:00 Temperature 36.8 C 37.2 C Pulse Rate 67 73 63 Respiratory Rate 16 18 18 Blood Pressure 150/69 H 153/70 H Pulse Oximetry 95 94 06/18/19 08:32 06/18/19 09:05 06/18/19 09:15 Temperature Pulse Rate 63 68 70 Respiratory Rate 20 20 Blood Pressure Pulse Oximetry Intake/Output Intake/Output: Intake & Output 06/15/19 06/16/19 06/17/19 06/18/19 23:59 23:59 23:59 23:59 Intake Total 1920 2820 Output Total 1000 1875 Balance 920 945 Meds/Results Medications: Active Medications Generic Name Dose Route Start Last Admin Trade Name Freq PRN Reason Stop Dose Admin Hydrocodone Bitart/Acetaminophen 1 tab 06/18/19 05:00 06/18/19 08:31 Aiken 5-325 Mg PO 1 tab Q4H PRN Administration Pain Rated 1-3 Hydrocodone Bitart/Acetaminophen 2 tab 06/18/19 05:00 Aiken 5-325 Mg PO Q4H PRN Pain Rated 4-6 Amlodipine Besylate 5 mg 06/18/19 09:00 06/18/19 08:30 Norvasc PO 5 mg DAILY NATALYA Administration Atorvastatin Calcium 10 mg 06/17/19 12:50 06/18/19 08:31 Lipitor PO 10 mg DAILY NATALYA Administration Cephalexin HCl 500 mg 06/17/19 12:34 06/18/19 12:02 Keflex Capsule PO 500 mg Q6HR NATALYA Administration Docusate Sodium 100 mg 06/17/19 17:00 06/18/19 08:31 Colace Capsule PO 100 mg BID [facility] Administration Fentanyl Citrate 25 mcg 06/17/19 06:45 06/17/19 12:07 Sublimaze IV PUSH 25 mcg Q2M PRN Administration Pain Hydrochlorothiazide 12.5 mg 06/17/19 12:55 06/18/19 08:32 Hydrochlorothiazide PO 12.5 mg DAILY [facility] Administration Hydromorphone HCl 0.5 mg 06/17/19 12:34 06/17/19 23:35 Dilaudid Inj IV PUSH 0.5 mg Q4H PRN Administration Pain Rated 7-10 Dextrose/Lactated Ringer's 1,000 mls @ 125 mls/hr 06/17/19 12:34 06/18/19 12:12 Dextrose 5%/Lactated Ringers IV CONT 125 mls/hr .Q8H NATALYA Administration Irbesartan 150 mg 06/17/19 12:55 06/18/19 08:32 Avapro PO 150 mg DAILY [facility] Administration Metoprolol Succinate 200 mg 06/18/19 09:00 06/18/19 08:32 Toprol Xl PO 200 mg DAILY [facility] Administration Naloxone HCl 0.1 mg 06/17/19 12:34 Narcan IV PUSH Q2M PRN Opiate Reversal Ondansetron HCl 4 mg 06/17/19 06:45 06/18/19 08:25 Zofran Inj IV PUSH 4 mg ONCE PRN Administration Nausea Ondansetron HCl 4 mg 06/17/19 12:34 Zofran Inj IV PUSH Q6H PRN Nausea And Vomiting Labs Labs: Laboratory Results - last 24 hr 06/18/19 06/18/19 06:11 06:11 WBC 10.5 H RBC 4.59 L Hgb 13.8 L Hct 40.1 L MCV 87.4 MCH 30.1 MCHC 34.4 RDW 11.9 Plt Count 173 MPV 8.4 Immature Gran % (Auto) 0.4 Neut % (Aut
[2019-06-19] MEDS: CEPHALEXIN 500 MG CAPSULE PO ×2 (00:23→05:42)
[2019-06-19] MEDS: DEXTROSE 5%/LACTATED RINGERS 1,000 ML 125 ML IV CONT (05:42)
[2019-06-19 05:58] LABS: Hematocrit 37.8 % (42.0-52.0); Hemoglobin 12.9 g/dL (14.0-18.0); Mean Corpuscular HGB Conc 34.1 g/dl (32-36); Mean Corpuscular Hemoglobin 30.3 pg (26-34); Mean Corpuscular Volume 88.7 fl (80-100); Mean Platelet Volume 8.9 fl (7.4-10.4); Platelet Count Result 165 k/mm3 (150-375); Red Blood Count 4.26 M/mm3 (4.6-6.20); Red Cell Distribution Width 11.9 % (11.5-14.5); White Blood Count 10.6 K/mm3 (4.5-10.0)
[2019-06-19 06:00] VITALS: BP 137/69; PULSE 64; RESP 18; TEMP 37.1; O2SAT 91
[2019-06-19 06:01] LABS: Alanine Aminotransferase 25 U/L (4-50); Albumin Level 3.6 g/dL (3.5-5.1); Alkaline Phosphatase 58 U/L (38-126); Aspartate Amino Transferase 30 U/L (17-59); Bilirubin,Total 1.1 mg/dL (0.2-1.3); Blood Urea Nitrogen 11 mg/dL (9-20); Carbon Dioxide 33 mmol/L (22-30); Chloride 98 mmol/L (98-107); Estimated CRCL calculation 48 ml/min; Estimated Glomerular Filt Rate 49; Glucose 121 mg/dL (75-110); Potassium 3.8 mmol/L (3.4-5.0); Sodium 132 mmol/L (137-145)
--- NOTE | 2019-06-19 07:49 | WPDUROPN2 ---
Progress Note: A&P Assessment and Plan (1) Renal mass, right: Code(s): N28.89 - Other specified disorders of kidney and ureter Status: Acute Assessment and Plan: Postoperative day 2. Doing well. 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 Discharged home today with pain meds. Will plan on setting up a tele health visit in 2-3 weeks time Subjective Subjective Date/Time Seen: 06/19/19 07:49 Post Op day: 2 Principal diagnosis: renal cell carcinoma Interval history: Doing well postoperatively. Ambulating tolerating a diet and voiding. 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 Patient is anxious to go home. Review of Systems Review of Systems: All systems reviewed & are unremarkable except as noted in HPI and below Exam Const: General: comfortable HENMT: General nose exam: Normal nares present Resp: Effort & Inspection: normal respiratory effort Cardio: Rate: regular rate Rhythm: regular rhythm Objective Data Vital Signs Vital Signs: Vital Signs - 24 hr 06/18/19 08:32 06/18/19 09:05 06/18/19 09:15 Temperature Pulse Rate 63 68 70 Respiratory Rate 20 20 Blood Pressure Pulse Oximetry 06/18/19 14:00 06/18/19 22:00 06/19/19 06:00 Temperature 36.7 C 37.4 C 37.1 C Pulse Rate 67 64 64 Respiratory Rate 18 18 18 Blood Pressure 143/64 H 143/58 H 137/69 Pulse Oximetry 91 91 91 Intake/Output Intake/Output: Intake & Output 06/16/19 06/17/19 06/18/19 06/19/19 23:59 23:59 23:59 23:59 Intake Total 1920 5660 1150 Output Total 1000 2525 930 Balance 920 3135 220 Meds/Results Medications: Active Medications Generic Name Dose Route Start Last Admin Trade Name Freq PRN Reason Stop Dose Admin Hydrocodone Bitart/Acetaminophen 1 tab 06/18/19 05:00 06/18/19 18:01 Labadie 5-325 Mg PO 1 tab Q4H PRN Administration Pain Rated 1-3 Hydrocodone Bitart/Acetaminophen 2 tab 06/18/19 05:00 Labadie 5-325 Mg PO Q4H PRN Pain Rated 4-6 Amlodipine Besylate 5 mg 06/18/19 09:00 06/18/19 08:30 Norvasc PO 5 mg DAILY NATALYA Administration Atorvastatin Calcium 10 mg 06/17/19 12:50 06/18/19 08:31 Lipitor PO 10 mg DAILY NATALYA Administration Cephalexin HCl 500 mg 06/17/19 12:34 06/19/19 05:42 Keflex Capsule PO 500 mg Q6HR NATALYA Administration Docusate Sodium 100 mg 06/17/19 17:00 06/18/19 18:01 Colace Capsule PO 100 mg BID NATALYA Administration Fentanyl Citrate 25 mcg 06/17/19 06:45 06/17/19 12:07 Sublimaze IV PUSH 25 mcg Q2M PRN Administration Pain Hydrochlorothiazide 12.5 mg 06/17/19 12:55 06/18/19 08:32 Hydrochlorothiazide PO 12.5 mg DAILY [facility] Administration Hydromorphone HCl 0.5 mg 06/17/19 12:34 06/17/19 23:35 Dilaudid Inj IV PUSH 0.5 mg Q4H PRN Administration Pain Rated 7-10 Dextrose/Lactated Ringer's 1,000 mls @ 125 mls/hr 06/17/19 12:34 06/19/19 05:42 Dextrose 5%/Lactated Ringers IV CONT 125 mls/hr .Q8H NATALYA Administration Irbesartan 150 mg 06/17/19 12:55 06/18/19 08:32 Avapro PO 150 mg DAILY [facility] Administration Metoprolol Succinate 200 mg 06/18/19 09:00 06/18/19 08:32 Toprol Xl PO 200 mg DAILY NATALYA Administration Naloxone HCl 0.1 mg 06/17/19 12:34 Narcan IV PUSH Q2M PRN Opiate Reversal Ondansetron HCl 4 mg 06/17/19 06:45 06/18/19 08:25 Zofran Inj IV PUSH 4 mg ONCE PRN Administration Nausea Ondansetron HCl 4 mg 06/17/19 12:34 Zofran Inj IV PUSH Q6H PRN Nausea And Vomiting Labs Labs: Laboratory Results - last 24 hr 06/19/19 06/19/19 05:35 05:35 WBC 10.6 H RBC 4.26 L Hgb 12.9 L Hct 37.8 L MCV 88.7 MCH 30.3 MCHC 34.1 RDW 11.9 Plt Count 165 MPV 8.9 Sodium 132 L Potassium 3.8 Chloride 98 Carbon Dioxide 33 H BUN 11 Creatinine 1.40 H Estim Creat Clear Calc 48 Estimated GFR
[2019-06-19 08:47] VITALS: PULSE 64
[2019-06-19] MEDS: IRBESARTAN 150 MG TABLET PO (08:47)
[2019-06-19] MEDS: METOPROLOL SUCCINATE EXT REL 100 MG TABCR 200 MG PO (08:47)
[2019-06-19] MEDS: DOCUSATE SODIUM 100 MG CAPSULE PO (08:47)
[2019-06-19] MEDS: hydroCHLOROthiazide 12.5 MG CAPSULE PO (08:48)
[2019-06-19] MEDS: ATORVASTATIN 10 MG TABLET PO (08:48)
[2019-06-19] MEDS: AMLODIPINE BESYLATE 5 MG TABLET PO (08:48)
--- NOTE | 2019-07-10 13:28 | DS_ITS ---
DATE OF DISCHARGE: 06/19/2019 PREOPERATIVE DIAGNOSIS: Right renal mass. POSTOPERATIVE DIAGNOSIS: Right renal mass. HOSPITAL COURSE: The patient underwent a hand-assisted laparoscopic right radical nephrectomy on June 17, [address] Shaggy Geiger. The patient tolerated procedure well, was transferred to Recovery in stable condition and to the floor for further observation. The patient was then discharged home on June 19, 2019. The patient was to go home with minimal activity. No straining. Diet as tolerated. No lifting greater than 20 pounds. The patient to follow up in 2 weeks. The patient is to resume all home medications in addition to tramadol 50 mg by mouth every 6 hours as needed. D I MT: Mark
== END 2019-06-19 09:17 | disposition home or self-care (01) | DRG 658 ==
LOC: ANHSURGERY 12:37 → ANH3MEDSUR 12:38
PROVIDERS: Urology; Admitting Provider Urology; PCP Family Medicine Adolescent Medicine; Visit Provider Urology
PROC: 0TT00ZZ Resection of Right Kidney, Open Approach (ICD-10-PCS; principal; 2019-06-17 07:30)
DX: C64.1 Malignant neoplasm of right kidney, except renal pelvis (principal); I10 Essential (primary) hypertension; E78.00 Pure hypercholesterolemia, unspecified; Z85.46 Personal history of malignant neoplasm of prostate; Z87.891 Personal history of nicotine dependence; Z28.21 Immunization not carried out because of patient refusal
CPT/HCPCS: 36415; 80048; 80053; 85014; 85018; 85025; 85027; 88307; 94640; 97161; 97165; A9270; J0690; J1100; J1170; J2250; J2270; J2370; J2405; J2704; J3010; J7120; J7121

== ENCOUNTER 2019-09-24 07:36 | Outpatient (CLI) | payer OTHER, SELFPAY ==
--- NOTE | ~2019-09-24 | XR_ITS ---
EXAMINATION: XR chest 2V 09/24/2019 07:59 INDICATION: Right renal cell carcinoma PROCEDURE: 2 view chest COMPARISON: 12/18/2005 FINDINGS: The lungs are clear. The cardiomediastinal silhouette is within normal limits. There are no pleural effusions. There is no pneumothorax suspected. IMPRESSION: 1: NO ACUTE CARDIOPULMONARY DISEASE. Reviewed, dictated and finalized at location A.
--- NOTE | ~2019-09-24 | CT_ITS ---
EXAMINATION: CT abdomen pelvis wo/w con DATE: 09/24/2019 08:23 INDICATION: Right kidney cancer TECHNIQUE: Computed tomography (CT) of the abdomen was performed without intravenous contrast. CT of the abdomen and pelvis was then performed with a total of 100 mL Omnipaque 350 intravenous contrast. The dose-length product (DLP) was 1849.94 mGy-cm. Automated exposure control and iterative reconstruc tion technique were employed. COMPARISON: 04/13/2019 FINDINGS: Minimal dependent atelectasis is present in the lung bases. The heart size is normal. Punct ate calcifications in otherwise normal appearing liver and spleen likely represent healed granulomato us disease. The pancreas, gallbladder, and adrenal glands are normal. There are changes of interval r ight nephrectomy. No residual neoplasm is identified in the surgical bed. There is a 1.6 cm cyst of t he left kidney upper pole. No pathologically enlarged abdominal or pelvic lymph nodes are identified. There is no free intraperitoneal gas or evidence of bowel obstruction. Brachytherapy seeds are noted in the prostate. There is severe lumbar spondylosis at L5-S1. IMPRESSION: 1. Changes of interval right nephrectomy without evidence of residual malignancy or metastatic diseas e. Reviewed, dictated and finalized at location A. IMPRESSION: 1. Changes of interval right nephrectomy without evidence of residual malignanc y or metastatic disease.
[2019-09-24 08:08] LABS: Estimated Glomerular Filt Rate 59
== END 2019-09-24 07:37 | disposition home or self-care (01) ==
PROVIDERS: PCP Family Medicine Adolescent Medicine; Visit Provider Urology
DX: C64.1 Malignant neoplasm of right kidney, except renal pelvis (principal); Z90.5 Acquired absence of kidney
CPT/HCPCS: 36415; 71046; 74178; Q9967

== ENCOUNTER 2020-03-31 07:46 | Outpatient (CLI) | payer OTHER, SELFPAY ==
--- NOTE | ~2020-03-31 | XR_ITS ---
EXAMINATION: XR chest 2V 03/31/2020 08:05 INDICATION: Malignant neoplasm of the right kidney PROCEDURE: PA and lateral views of the chest COMPARISON: Comparison to multiple prior studies sequentially, with oldest reviewed study dated 12/18. FINDINGS: The lungs are clear. The cardiomediastinal silhouette is within normal limits. There are no pleural effusions. There is no pneumothorax suspected. IMPRESSION: 1: NO ACUTE CARDIOPULMONARY DISEASE. Reviewed, dictated and finalized at location A. ING TRACER
--- NOTE | ~2020-03-31 | CT_ITS ---
EXAMINATION: CT abdomen pelvis wo/w con DATE: 03/31/2020 08:37 INDICATION: Malignant neoplasm of right kidney, restaging; status post right nephrectomy TECHNIQUE: Computed tomography (CT) of the abdomen and pelvis was performed without and subsequently with 100 cc Omnipaque 350 intravenous contrast. Automated exposure control and iterative reconstructi on technique were employed. Exam dose: 1964.30 mGy-cm total exam DLP. COMPARISON: 09/24/2019 CT abdomen pelvis FINDINGS: There are calcified right hilar nodes. There are calcified hepatic and splenic granulomas. No infiltrate or consolidation at the lung bases. Cardiomegaly. No pericardial or pleural effusion. Mild bilateral gynecomastia. No hepatic, splenic, pancreatic or adrenal space-occupying mass lesion is evident. 1.9 cm upper pole left renal cyst. No other left renal space occupying mass lesion is detected. No left urinary tract calculus or hydroureteronephrosis. Normal caliber of the abdominal aorta. No intraperitoneal or retroperitoneal or pelvic mass lesion or adenopathy or ascites. There are multiple radiopaque prostate seeds. The urinary bladder is distended, extending as high as the umbilicus. No apparent bladder wall thicke angeli. No bowel obstruction, bowel wall thickening, pneumatosis or intraperitoneal free air. Normal appendix . No suspicious osteolytic or osteoblastic lesions are noted. Diffuse idiopathic skeletal hyperostosis of the thoracic spine. Degenerative changes of the lumbar sp ine are noted, including moderate degenerative disease at L4-5 and severe degenerative disc disease a t L5-S1. IMPRESSION: Status post right nephrectomy for reported right renal malignancy No evidence of recurrent or metastatic malignancy Multiple prostate radiopaque seeds Stable 1.9 cm upper pole left renal cyst Reviewed, dictated and finalized at Location A. Reviewed, dictated and finalized at location B. E MAKER
[2020-03-31 08:24] LABS: Estimated Glomerular Filt Rate 53
== END 2020-03-31 07:47 | disposition home or self-care (01) ==
PROVIDERS: PCP Family Medicine Adolescent Medicine; Visit Provider Urology
DX: C64.1 Malignant neoplasm of right kidney, except renal pelvis (principal); Z90.5 Acquired absence of kidney; R93.89 Abnormal findings on diagnostic imaging of other specified body structures; N28.1 Cyst of kidney, acquired
CPT/HCPCS: 71046; 74178; Q9967

== ENCOUNTER 2021-04-21 07:55 | Outpatient (CLI) | payer OTHER, SELFPAY ==
--- NOTE | ~2021-04-21 | XR_ITS ---
EXAMINATION: XR chest 2V 04/21/2021 08:15 INDICATION: Malignant neoplasm of the right kidney. PROCEDURE: 2 view chest COMPARISON: Comparison to multiple prior studies sequentially, with oldest reviewed study dated 09/2004. FINDINGS: The lungs are clear. The cardiomediastinal silhouette is within normal limits. There are no pleural effusions. There is no pneumothorax suspected. IMPRESSION: 1: NO ACUTE CARDIOPULMONARY DISEASE. Reviewed, dictated and finalized at location B. LAINT COORDINATOR
--- NOTE | ~2021-04-21 | CT_ITS ---
EXAMINATION: CT abdomen pelvis wo/w con EXAM DATE: 04/21/2021 08:31 INDICATION: Malignant neoplasm RT kidney. TECHNIQUE: Spiral CT of the abdomen without contrast followed by both abdomen and pelvis with 100 cc intravenous Omnipaque 350. Axial, coronal and sagittal images of the abdomen and pelvis were reviewe d. The dose-length product (DLP) for this examination was 2057.71 mGy-cm. The exposure was tailored according to patient size (auto mA exposure control), and iterative reconstruction (ASIR) was used a s additional dose reduction technique. Comparison is made to prior examination from 03/31/2020. FINDINGS: Surgical changes from right-sided nephrectomy. No left nephrolithiasis or hydronephrosis. T here is a left renal cyst measuring 2 cm. There are prostate radiation seeds. Bladder is unremarkable . The liver, spleen, adrenal glands and pancreas are unremarkable. Gallbladder is unremarkable. No biliary obstruction. There is no retroperitoneal or pelvic lymphadenopathy. There is mild scattere d arteriosclerotic disease. The appendix is normal. The stomach and small bowel are unremarkable. There is expected amount of c olonic stool. No free intraperitoneal gas. The heart is normal in size. There are no pericardial or pleural effusions. Small amount of dependent groundglass opacity probably subsegmental atelectas is. There are no osteoblastic or osteolytic lesions identified. IMPRESSION: Surgical changes from right nephrectomy, stable. Reviewed, dictated and finalized at location A. OMS VERIFIER
[2021-04-21 08:24] LABS: Estimated Glomerular Filt Rate 53
== END 2021-04-21 07:56 | disposition home or self-care (01) ==
LOC: ANHIMG 08:01
PROVIDERS: PCP Family Medicine Adolescent Medicine; Visit Provider Urology
DX: C64.1 Malignant neoplasm of right kidney, except renal pelvis (principal); Z90.5 Acquired absence of kidney
CPT/HCPCS: 71046; 74178; Q9967

== ENCOUNTER 2022-06-27 07:46 | Outpatient (CLI) | payer OTHER, SELFPAY ==
--- NOTE | ~2022-06-27 | CT_ITS ---
EXAMINATION: CT abdomen pelvis wo/w con DATE: 06/27/2022 08:19 INDICATION: Malignant neoplasm of the right kidney TECHNIQUE: Computed tomography (CT) of the abdomen was performed without intravenous contrast. CT of the abdomen and pelvis was then performed with a total of 100 mL Omnipaque 350 intravenous contrast. The dose-length product (DLP) was 2093.92 mGy-cm. Automated exposure control and iterative reconstruc tion technique were employed. COMPARISON: 04/21/2021 FINDINGS: Minimal dependent atelectasis is present in the lung bases. The heart size is normal. Calci fied pulmonary nodules and calcified right hilar lymph nodes are consistent with old granulomatous di sease. Punctate calcifications in otherwise normal appearing liver and spleen likely represent healed granulomatous disease. Stones are present in the nondistended gallbladder. The pancreas and adrenal glands are normal. There are changes of right nephrectomy. There is a 2.3 cm cyst of the left kidney upper pole. No pathologically enlarged abdominal or pelvic lymph nodes are identified. No free intrap eritoneal gas or evidence of bowel obstruction. Brachytherapy seeds are noted in the prostate. There is moderate lumbar spondylosis. IMPRESSION: 1. Stable changes of right nephrectomy without evidence of recurrent or metastatic disease. Reviewed, dictated and finalized at location L. IMPRESSION: 1. Stable changes of right nephrectomy without evidence of recurrent or metasta tic disease.
--- NOTE | ~2022-06-27 | XR_ITS ---
EXAMINATION: XR chest 2V DATE: 06/27/2022 08:06 INDICATION: Malignant neoplasm of the right kidney TECHNIQUE: PA and lateral views of the chest are obtained. COMPARISON: 04/21/2021 FINDINGS: The lungs are free of acute opacities. No pleural effusion or pneumothorax. The cardiomedia stinal silhouette is normal. There are bridging osteophytes at multiple levels in the spine, consiste nt with diffuse idiopathic skeletal hyperostosis (DISH). IMPRESSION: 1. No acute cardiopulmonary abnormality. Reviewed, dictated and finalized at location L.
== END 2022-06-27 07:47 | disposition home or self-care (01) ==
PROVIDERS: PCP Family Medicine Adolescent Medicine; Visit Provider Urology
DX: C64.1 Malignant neoplasm of right kidney, except renal pelvis (principal); Z90.5 Acquired absence of kidney
CPT/HCPCS: 71046; 74178; Q9967

== ENCOUNTER 2023-02-20 08:55 | Outpatient (CLI) | payer OTHER, SELFPAY | END 2023-02-20 08:56 | disposition home or self-care (01) | LOC: ANHAUDIO 08:55 | PROVIDERS: PCP Family Medicine Adolescent Medicine; Visit Provider Family Medicine Adolescent Medicine | DX: H91.13 Presbycusis, bilateral (principal) | CPT/HCPCS: 99199 ==

== ENCOUNTER 2023-08-08 06:55 | Outpatient (CLI) | payer OTHER, SELFPAY ==
--- NOTE | ~2023-08-08 | CT_ITS ---
CT of the Abdomen and Pelvis: Indication: Renal malignancy Technique: 2.5 mm axial scans were obtained through the abdomen and pelvis prior to and following in travenous administration of 100 cc of Omnipaque 350. Dose reduction technique was used on this scan b y utilizing automated exposure control and iterative reconstruction technique. The dose-length produc t (DLP) was 2366.75 mGy-cm. COMPARISON: 06/27/2022 Findings: Scans through the lung bases demonstrates stable 4 mm pleural-based nodule the right middl e lobe. Calcified hepatic and splenic granulomas are present. The pancreas and adrenal glands are within norm al limits. Left kidney unremarkable, aside from small cysts. Status post right nephrectomy. Small gal lstones are present. There are atherosclerotic calcifications of the aorta. No lymphadenopathy. No bowel obstruction or bowel wall thickening. There is no evidence to suggest acute appendicitis. Images through the pelvis were performed. Urinary bladder unremarkable. Prostate gland radiation seed s are present. No ascites. Impression: No evidence for active malignancy or metastatic disease. Status post right nephrectomy. Cholelithiasis. Reviewed, dictated and finalized at location . Impression: No evidence for active malignancy or metastatic disease. Status post right neph rectomy. Cholelithiasis.
--- NOTE | ~2023-08-08 | XR_ITS ---
Clinical Indication: Renal cell carcinoma PA and lateral views of the chest: Comparison: 06/27/2022 Findings: The lungs are clear, without evidence of focal consolidation or pleural effusion. Cardiome diastinal silhouette is within normal limits. Bones and soft tissues are unremarkable. Impression: Normal chest. Reviewed, dictated and finalized at [facility]. Impression: Normal chest.
== END 2023-08-08 06:56 | disposition home or self-care (01) ==
PROVIDERS: PCP Family Medicine Adolescent Medicine; Visit Provider Urology
DX: C64.1 Malignant neoplasm of right kidney, except renal pelvis (principal); K80.20 Calculus of gallbladder without cholecystitis without obstruction; Z90.5 Acquired absence of kidney
CPT/HCPCS: 71046; 74178; Q9967

== ENCOUNTER 2024-08-11 10:07 | Outpatient (CLI) | payer OTHER, SELFPAY ==
--- NOTE | ~2024-08-11 | XR_ITS ---
CHEST RADIOGRAPH, PA AND LATERAL CLINICAL HISTORY: MALIGNANT NEOPLASM RIGHT KIDNEY, EXCEPT RENAL PELVIS . COMPARISON: 08/08/2023 TECHNIQUE: PA and lateral views of the chest. FINDINGS The cardiomediastinal silhouette is enlarged, unchanged. The lungs are clear. IMPRESSION: No focal infiltrate or effusion. Reviewed, dictated and finalized at location A.
--- OUTSIDE RECORDS SUMMARY | 2024-08-11 10:41 | XMS_ITS | Encounter Summary ---
Author Organization [facility] Healthcare Address [address] [place] [address] Care Team Providers Care Electrical Products Engineer Name Role Phone Rob Sweeney MD Primary Care Prov ider Encounter Details Date Type Department Care Team (Late st Contact Info) Description 08/11/2024 Orders Only [facility] Medical Group Convenient Care at [place] [address] [place] [phone] Pratibha Wylie, FRANK [address] [place] [address] Social History Tobacco Use Types Packs/Day Years Used Date Smoking Tobacco: Former Cigarettes Q uit: 1968 Smokeless Tobacco: Former Alcohol Use Standard Drinks/Week Comments Yes 0 (1 standard drink = 0.6 oz pur e alcohol) Sex and Gender Information Value Date Recorded Sex Assigned at Not on file 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 baclofen (LIORESAL) 20 mg tablet Take 1 tablet (20 mg total) by mouth 3 (three) times a day as needed for muscle spasms 08/04/2024 tamsulosin (FLOMAX) 0.4 mg extended release capsule Take 1 capsule (0.4 mg total) by mouth nightly 07/21/2024 added in this encounter Care Teams Electrical Products Engineer Relationship Specialty Start Date End Date Rob Sweeney MD [address] [place] [address] PCP - General Family Medicine 02/16/20 documented as of this encounter
--- OUTSIDE RECORDS SUMMARY | 2024-08-11 10:41 | XMS_ITS | Encounter Summary ---
Author Organization [facility] Healthcare Address [address] [place] [address] Care Team Providers Care Planning Division Superintendent Name Role Phone Rob Sweeney MD Primary Care Prov ider Reason for Referral * Procedure (Routine) - Authorized Specialty Diagnoses / Procedures Referred By Eloise roberson Referred To Contact Diagnoses Bilateral impacted cerumen Procedures Ear Cerumen Removal Pratibha Wylie NP [address] [place] [address] Phone: tel: fax: [facility] Medical Group Referral ID Status Reason Start Date Expiration Date V isits Requested Visits Authorized [id number] Authorized 08/11/2024 09/10/2025 1 1 Reason for Visit * Reason Comments Cerumen Impaction Pt has wax build manriquez ld and ears feel clogged. 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 Gender Identity Not on file Sexual Orientation Not on file documented as of this encounter Last Filed Vital Signs Vital Sign Reading Time Taken Comments Blood Pressure 126/80 08/11/2024 9:02 AM CDT Pulse 51 08/11/2024 9:02 AM CDT Temperature 36.4 C (97.6 F) 08/11/2024 9:02 AM CDT Respiratory Rate 18 08/11/2024 9:02 AM CDT Oxygen Saturation 93% 08/11/2024 9:02 AM CDT Inhaled Oxygen Concentration - - Weight 114.7 kg (252 lb 12.8 oz) 08/11/2024 9:02 AM CDT Height - - Body Mass Index 34.29 04/14/2020 11:39 AM BEAN PICKER documented in this encounter Patient Instructions * Patient Instructions* Pratibha Wylie NP - 08/11/2024 9:15 AM CDT 1. Bilateral impacted cerumen (Primary) Bilateral ears cleaned today. If you notice you start having a decrease in hearing again I would recommend using Debrox to help soften any ear wax in return to clinic to have her ears flushed again. Thank you choosing [facility] and allowing me to care for you today. I hope you felt well supported and received the best care possible. If you have any questions about your treatment plan, please do not hesitate to reach out. It was my pleasure to see you today, I hope you feel better soon! Respectfully, DENIS Coleman-PABLO documented in this encounter Plan of Treatment Pending Results Name Type Priority Associated Diagnoses Date /Time Ear Cerumen Removal Procedures Routine Bilateral impacted cerumen 08/11/2024 9:15 AM CDT documented as of this encounter Procedures Procedure Name Priority Date/Time Associated Diagnosis Comments EAR CERUMEN REMOVAL Routine 08/11/2024 9:15 AM CD T Bilateral impacted cerumen documented in this encounter Visit Diagnoses Diagnosis Bilateral impacted cerumen- Primary Impacted cerumen documented in this encounter Care Teams Planning Division Superintendent Relationship Specialty Start Date End Date Rob Sweeney MD [address] [place] [address] PCP - General Family Medicine 02/16/20 documented as of this encounter
--- OUTSIDE RECORDS SUMMARY | 2024-08-11 10:41 | XMS_ITS | Referral Summary ---
Author Organization [facility] [address] Address [address] [place] [address] Care Team Providers Care Livestock Dealer Name Role Phone Rob Sweeney MD Primary Care Prov ider Encounters Date Type Department Care Team Description 08/11/2024 Orders Only [facility] Medical Group Convenient Care at [address] [phone] Pratibha Wylie NP 08/11/2024 9:15 AM CDT Office Visit [facility] Medical [facility] Convenient Care at [address] [phone] Pratibha Wylie NP Bilateral impacted cerumen (Primary Dx) from Last 3 Months Allergies No known active allergies Medications amLODIPine (NORVASC) 5 mg tablet 12/23/2019 Active atorvastatin (LIPITOR) 10 mg tablet 02/23/2020 Active irbesartan-hydr oCHLOROthiazide (AVALIDE) 300-12.5 mg per tablet 12/23/2019 Active metoprolol XL (TOPROL-XL) 200 mg extended release tablet 01/27/2020 Acti ve omega-3 fatty acids-fish oil 300-1,000 mg capsule Take 2 g by mouth daily Active tamsulosin (FLOMAX) 0.4 mg extended release capsule Take 1 capsule (0.4 mg total) by mouth nightly 07/21/2024 Active baclofen (LIORESAL) 20 mg tablet Take 1 tablet (20 mg total) by mouth 3 (three) times a day as needed for muscle spasms 08/04/2024 Active Active Problems No known active problems Social History Tobacco Use Types Packs/Day Years Used Date Smoking Tobacco: Former Cigarettes Q uit: 1968 Smokeless Tobacco: Former Alcohol Use Standard Drinks/Week Comments Yes 0 (1 standard drink = 0.6 oz pur e alcohol) Sex and Gender Information Value Date Recorded Sex Assigned at Not on file 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 Gender Identity Not on file Sexual Orientation Not on file Last Filed Vital Signs Vital Sign Reading Time Taken Comments Blood Pressure 126/80 08/11/2024 9:02 AM CDT Pulse 51 08/11/2024 9:02 AM CDT Temperature 36.4 C (97.6 F) 08/11/2024 9:02 AM CDT Respiratory Rate 18 08/11/2024 9:02 AM CDT Oxygen Saturation 93% 08/11/2024 9:02 AM CDT Inhaled Oxygen Concentration - - Weight 114.7 kg (252 lb 12.8 oz) 08/11/2024 9:02 AM CDT Height 182.9 cm (6') 04/14/2020 11:39 AM PROJECT OFFICER Body Mass Index 34.29 04/14/2020 11:39 AM PROJECT OFFICER Plan of Treatment Not on file Procedures Procedure Name Priority Date/Time Associated Diagnosis Comments EAR CERUMEN REMOVAL Routine 08/11/2024 9:15 AM CD T Bilateral impacted cerumen from Last 3 Months Insurance [facility] Care Teams Livestock Dealer Relationship Specialty Start Date End Date Rob Sweeney MD [address] [place] [address] PCP - General Family Medicine 02/16/20
--- OUTSIDE RECORDS SUMMARY | 2024-08-11 10:41 | XMS_ITS | Continuity of Care Document ---
Author Organization [facility] Address [address] [place] [address] [place] [address] Phone Care Team Providers Care Spring Assembler Name Role Phone Husam Malloy Unavailable Unavailable Procedures Procedure Date Office/outpatient Visit, [place] Office/outpatient Visit, [facility] Advance Directives Directive Yes / No Effective Date File Name No Information Encounters Encounter Description Practice Location Reason(s) For Visit Diagnoses Date Provider Providers Copied on Encounter Office/outpat ient Visit, [facility], [address] [place], [place] [address] [address], [place], [place], [id number], tel:[phone] [facility] No Information 0 Krishnasamy Husam. [address] [address], [place], [address], [place]. tel:[phone] Office/outpat ient Visit, [facility], [address] [place] [address] [address], [place], [place], [id number], tel:[phone] [facility] No Information 0 Krishnasamy Husam. [address] [facility] [address], [place], [address], [place]. tel:[phone] Family History Family Member Type Diagnosis Age At Onset No Information Payers Payer name Insurance type Covered democrat ID Authoralicea krishna(s) [facility] Commercial CI [id number] Social History Type Description Quantity Date Captured Comments Sex Male Smoking Status No Information Chief Complaint And Reason For Visit No Information Reason For Referral Reason For Referral No Information History Of Present Illness Encounter Date Complaint History Of Prese nt Illness No Information Functional Status Date Functional Assessmen t No Information Instructions Date Instruction Additional Infor mation No Information Assessments Type Assessment Date No Information Patient Care Teams Name Effective Dates (start - stop) Status Members No Information
--- OUTSIDE RECORDS SUMMARY | 2024-08-11 10:42 | XMS_ITS | Clinical Summary ---
Author Organization [facility] [address] [facility] [address] Address [address] [place] [address] Care Team Providers Care Spectrographer Name Role Phone Rob Sweeney MD Primary Care Prov ider Allergies No known active allergies Medications amLODIPine [...] Active Active Problems No known active problems Encounters Date Type Department Care Team Description 08/11/2024 9:15 AM CDT Office Visit [facility] Medical Group Convenient Care at [address] [phone] Pratibha Wylie NP Bilateral impacted cerumen (Primary Dx) 08/11/[address] [facility] Medical Group Convenient Care at [place] [address] [place] [phone] Pratibha Wylie NP from Last 3 Months Surgical History Surgery Date Site/Laterality Comments KNEE SURGERY ROTATOR CUFF REPAIR KIDNEY SURGERY Medical History Medical History Date Comments Hypercholesteremia Hypertension Cancer (HCC) Family History Medical History Relation Name Comments Cancer Mother Diabetes Mother Relation Name Status Comments Father Mother Social History Tobacco Use Types Packs/Day Years Used Date Smoking Tobacco: Former Cigarettes Q uit: 1968 Smokeless Tobacco: Former Alcohol Use Standard Drinks/Week Comments Yes 0 (1 standard drink = 0.6 oz pur e alcohol) Sex and Gender Information Value Date Recorded Sex Assigned at Not on file 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 Gender Identity Not on file Sexual Orientation Not on file Obstetrics History Last Filed Vital Signs Vital Sign Reading Time Taken Comments Blood Pressure 126/80 08/11/2024 9:02 AM CDT Pulse 51 08/11/2024 9:02 AM CDT Temperature 36.4 C (97.6 F) 08/11/2024 9:02 AM CDT Respiratory Rate 18 08/11/2024 9:02 AM CDT Oxygen Saturation 93% 08/11/2024 9: 02 AM CDT Inhaled Oxygen Concentration - - Weight 114.7 kg (252 lb 12.8 oz) 08/11/2024 9:02 AM CDT Height 182.9 cm (6') 04/14/2020 11:39 AM INTERIOR DESIGN PROJECT MANAGER Body Mass Index 34.29 04/14/2020 11:39 AM INTERIOR DESIGN PROJECT MANAGER Plan of Treatment Health Maintenance Due Date Last Done Comments Depression Screening 1940 Fall Risk Assessment 1940 DTaP/Tdap/Td Vaccine (1 - Tdap) 12/23/1951 Hepatitis B Screening 1958 Pneumococcal vaccine 65+ (1 of 1 - PCV) 1990 Zoster Vaccine (1 of 2) 1990 Well Visit 65+ 2005 Influenza Vaccine (Season Ended) 2024 12/31/19 20 Procedures Procedure Name Priority Date/Time Associated Diagnosis Comments EAR CERUMEN REMOVAL Routine 08/11/2024 9:15 AM CD T Bilateral impacted cerumen from Last 3 Months Insurance [facility] Care Teams Spectrographer Relationship Specialty Start Date End Date Rob Sweeney MD [address] [place] [address] PCP - General Family Medicine 02/16/20
== END 2024-08-11 10:08 | disposition home or self-care (01) ==
PROVIDERS: PCP Family Medicine Adolescent Medicine; Visit Provider Urology
DX: C64.1 Malignant neoplasm of right kidney, except renal pelvis (principal)
CPT/HCPCS: 71046

== ENCOUNTER 2024-08-19 07:45 | Outpatient (CLI) | payer OTHER, SELFPAY ==
--- NOTE | ~2024-08-19 | MR_ITS ---
MRI of the lumbar spine Clinical History: Back pain Technique: Axial T2-weighted images, and sagittal T1-weighted, T2-weighted, and T2 fat-sat images wer e acquired. Findings: There is no fracture or subluxation of the lumbar spine. Vertebral bodies maintain normal h eight and alignment. No bone marrow signal abnormality seen. At L1-L2, there is minimal disc bulge with moderate facet arthropathy. No spinal canal stenosis or de finite neural foraminal narrowing. At L2-L3, there is minimal disc bulge with moderate to advanced facet arthropathy. No central canal s tenosis. There is mild bilateral neural foraminal narrowing. At L3-L4, there is mild disc bulge with advanced facet arthropathy. No central canal stenosis. There is moderate left neural foraminal narrowing. Right neural foramen preserved. At L4-L5, there is moderate to advanced degenerative disc narrowing. There is disc bulge with severe facet arthropathy. No central canal stenosis. There is moderate to advanced left neural foraminal linda rowing, and severe right neural foraminal narrowing. At L5-S1, there is advanced degenerative disc disease with diffuse disc bulge and moderate to advance d facet arthropathy. No central canal stenosis. There is severe right neural foraminal narrowing, and advanced left neural foraminal narrowing. Paravertebral soft tissues are unremarkable. Impression: Moderate to advanced degenerative spondylosis overall, with multilevel neural foraminal narrowing and degenerative disc disease, as detailed above. Reviewed, dictated and finalized at [facility]. Impression: Moderate to advanced degenerative spondylosis overall, with multilevel neural f oraminal narrowing and degenerative disc disease, as detailed above.
== END 2024-08-19 07:46 | disposition home or self-care (01) ==
LOC: MICIMG 07:46
PROVIDERS: PCP Family Medicine Adolescent Medicine; Visit Provider Family Medicine Adolescent Medicine
DX: M47.816 Spondylosis without myelopathy or radiculopathy, lumbar region (principal); M48.061 Spinal stenosis, lumbar region without neurogenic claudication; M48.07 Spinal stenosis, lumbosacral region; M51.369 Other intervertebral disc degeneration, lumbar region without mention of lumbar back pain or lower extremity pain; M51.379 Other intervertebral disc degeneration, lumbosacral region without mention of lumbar back pain or lower extremity pain
CPT/HCPCS: 72148